=== PATIENT | female | born 1945 | race Hispanic/Latino ===

== ENCOUNTER 2017-12-08 16:20 | Emergency (ER) | payer OTHER ==
[~2017-12-08] VITALS: Ht 154.9 cm; Wt 81.6 kg
[~2017-12-08 16:20] MED LIST: ATORVASTATIN; EFFEXOR XR150 MG PO; GLYBURIDE PO; LOMOTIL TABLET1 EACH; METOPROLOL PO; NORVASC5 MG PO; VENTOLIN HFA18 GM IH; [UNRECOGNIZED DRUG - CODE] INH
[2017-12-08] MEDS ORDERED: IBUPROFEN 600 MG TAB PO ONE (17:15)
--- NOTE | 2017-12-08 18:54 | Diagnostic Imaging Report ---
LEFT ELBOW X-RAY - 3 VIEWS HISTORY: \S\fall, pain \[id number] \S\1700 COMPARISON: None available. FINDINGS: Bones: No acute displaced fracture. Osseous alignment is within normal limits. Joints: The joint spaces are well-maintained. Soft tissues: The soft tissues appear unremarkable. IMPRESSION: No acute radiographic abnormality. Signed by: Dr. Celsa Daniels M.D. on 12/08/2017 6:51 PM
--- NOTE | 2017-12-08 18:55 | Diagnostic Imaging Report ---
LEFT WRIST X-RAY - 4 VIEWS HISTORY: \S\fall, pain \[id number] \S\1700 COMPARISON: None available. FINDINGS: Bones: No acute displaced fracture. Osseous alignment is within normal limits. Joints: The joint spaces are well-maintained. Soft tissues: The soft tissues appear unremarkable. IMPRESSION: No acute radiographic abnormality. Signed by: Dr. Celsa Daniels M.D. on 12/08/2017 6:52 PM
[2017-12-08 19:18] VITALS: BP 166/86
== END 2017-12-08 19:28 | disposition home or self-care (01) ==
LOC: ER 16:20
DX: S50.02XA Contusion of left elbow, initial encounter (principal); S60.212A Contusion of left wrist, initial encounter; W01.0XXA Fall on same level from slipping, tripping and stumbling without subsequent striking against object, initial encounter; Y92.008 Other place in unspecified non-institutional (private) residence as the place of occurrence of the external cause; F32.9 Major depressive disorder, single episode, unspecified
CPT/HCPCS: 99283

== ENCOUNTER 2020-02-13 14:24 | Inpatient (IN) | payer MEDICARE, OTHER ==
[~2020-02-13] VITALS: Ht 154.9 cm; Wt 50.8 kg
--- NOTE | 2020-02-13 14:45 | NUR ---
EDICAL ADVICE PATIENTS DAUGHTER AT THE WINDOW INSISTING THAT SHE BE ALLOWED BACK WITH PATIENT, STATING "I HAVE ALREADY HAD COVID SO I CAN'T CATCH IT AGAIN". EXPLAINED TO THE DAUGHTER THAT HOSPITAL POLICY FOR PATIENTS PRESENTING WITH COVID COMPLAINTS IS THAT THERE ARE NO VISITORS. PATIENTS DAUGHTER STATES THAT SHE IS GOING TO TAKE THE PATIENT TO ANOTHER HOSPITAL WHERE SHE WILL BE ABLE TO GO BACK WITH THE PATIENT. PATIENTS DAUGHTER STATES THAT SHE IS THE POWER OF EDGE BASTER, AND THAT THE PATIENT HAS DEMENTIA SO SHE MUST BE ALLOWED BACK WITH THE PATIENT. PATIENT ALERT AND ORIENTED AT THIS TIME, APPEARS IN NO DISTRESS, O2 SATS 100% ON ROOM AIR. PATIENT STATES THAT HER DAUGHTER IS ALWAYS LIKE THAT, AND "YOU ARE NOT GOING TO WIN, SHE IS USED TO BOSSING PEOPLE AROUND AND GETTING HER OWN WAY". PATIENT STATED THAT SHE WOULD STAY OR SIGN OUT AGAINST MEDICAL ADVICE ACCORDING TO WHAT HER DAUGHTER WANTED. DR MOLINA SPOKE WITH PATIENT AND DAUGHTER. DAUGHTER RELUCTANTLY AGREED TO ALLOW PATIENT TO STAY, BUT STATED THAT "I WILL BE CALLING OR COMING UP THERE EVERY 30 MINUTES FOR UPDATES. I NEED TO MAKE SURE THAT YOU ARE TAKING CARE OF HER". DR MOLINA UPDATED PATIENT AND FAMILY MEMBER ON PLAN OF CARE AND TIME EXPECTANCY FOR RESULTS.
[2020-02-13] MEDS ORDERED: SODIUM CHLORIDE 0.9% 1000ML 1,000 ML IV STA (14:50)
[2020-02-13] MEDS ORDERED: METOPROLOL SUCC50 MG PO (14:58)
[2020-02-13] MEDS ORDERED: ATORVASTATIN CA20 MG PO (14:58)
[2020-02-13] MEDS ORDERED: AZITHROMYCIN250 MG PO (14:58)
[2020-02-13] MEDS ORDERED: DETROL LA4 MG PO (14:58)
[2020-02-13] MEDS ORDERED: DIPHENOXYLATE-1 EACH PO (14:58)
[2020-02-13] MEDS ORDERED: VENLAFAXINE HC150 MG PO (14:58)
[2020-02-13] MEDS ORDERED: TESSALON PERLE100 MG PO (14:58)
[2020-02-13] MEDS ORDERED: DEXAMETHASONE4 MG PO (14:58)
[2020-02-13] MEDS ORDERED: NAMENDA5 MG PO (14:58)
--- OUTSIDE RECORDS SUMMARY | 2020-02-13 14:58 | XMS REPORT | Continuity of Care Document ---
Author Author [facility] Organization [facility] Address [address] [place] [address] Phone Unavailable Care Team Providers Care Auto Transmission Technician Name Role Phone Meggan CAVANAUGH MD PCP Josiah WEBB Attphymeggna Unavailable Payers Payer Name Policy Type Policy Number Effective Date Expiration Date Meggan Fonseca [id number] 2017 00:00:00 [facility] Problems Condition Name Condition Details Condition Category Status Onset Date Resolution Date Last Treatment Date Treating Clinician Comments Source Bronchitis Bronchitis Problem Active 2014-03-04 00:00:00 [facility] Fever Fever Problem Active 2014-03-04 00:00:00 [facility] Hypoxia Hypoxia Problem Active 2014-03-04 00:00:00 [facility] Reactive airway disease Reactive airway disease Problem Active 2014-03-04 00:00:00 [facility] Allergies, Adverse Reactions, Alerts Allergy Name Allergy Type Status Severity Reaction(s) Onset Date Inacti ve Date Treating Clinician Comments Source Morphine Allergy to Substance Active 2017-12-08 00:00:00 [facility] Medications Ordered Medication Name Filled Medication Name Start Date Stop Da te Current Medication? Ordering Clinician Indication Dosage Frequency Signature (SIG) Comments Components Source Albuterol Sulfate (Ventolin Hfa) 18 Gm Hfa.aer.ad Albu terol Sulfate (Ventolin Hfa) 18 Gm Hfa.aer.ad 2014-03-07 00:00:00 Yes Anjali Dinh 80 Every 4 Hours [facility] Amlodipine Besylate (Norvasc) 5 Mg Tab Amlodipine Besylate ( Norvasc) 5 Mg Tab 2014-03-07 00:00:00 Yes Anjali Dinh 5 Daily [facility] [id number] 1 Ea Inha [id number] 1 Ea Inha 2014-03-07 00:00:00 2014-04-06 00:0 0:00 No Anjali Dinh 0 Rt Bid [facility] Atorvastatin Atorvastatin Yes Daily [facility] Glyburide Glyburide Yes 2 Twice A Day [facility] Metoprolol Metoprolol Yes 50 Bedtime [facility] Venlafaxine Hcl (Effexor Xr) 150 Mg Cap.er.24h Venlafa xine Hcl (Effexor Xr) 150 Mg Cap.er.24h Yes 150 Daily [facility] Procedures This patient has no known procedures. Encounters Start Date/Time End Date/Time Encounter Type Admission Type [facility] Care Department Encounter ID Source 2017-12-08 16:20:00 2017-12-08 19:28:00 Departed Emergency Room 1 FABY WEBB [facility] [id number] [facility] Results Test Description Test Time Test Comments Results Result Comments Source WRIST COMPLETE LEFT 2017-12-08 18:51:00 [place] [address] Patient Name: LEE MICHAEL MR #: [id number] : 1945 Age/Sex: 72/F Req #: [id number] Adm Physician: Ordered by: FABY WEBB MD Report #: [id number] Location: ER Room/Bed: Procedure: [id number] DX/WRIST COMPLETE LEFT Exam Date: 09/02/18 Exam Time: 1700 REPORT STATUS: Signed LEFT WRIST X-RAY - 4 VIEWS HISTORY: COMPARISON: None available. FINDINGS: Bones: No acute displaced fracture. Osseous alignment is within normal limits. Joints: The joint spaces are well-maintained. Soft tissues: The soft tissues appear unremarkable. IMPRESSION: No acute radiographic abnormality. Signed by: Dr. Nickolas Canseco M.D. on 12/08/2017 6:52 PM Dictated By: NICKOLAS CANSECO MD 51 Transcribed By: KASSIDY on 12/08/171851 COPY TO: FABY WEBB MD ELBOW LEFT COMPLETE 2017-12-08 18:50:00 [place] [address] Patient Name: LEE MICHAEL MR #: [id number] : 1945 Age/Sex: 72/F Req #: [id number] Adm Physician: Ordered by: FABY WEBB MD Report #: [id number] Location: ER Room/Bed: Procedure: [id number] DX/ELBOW LEFT COMPLETE Exam Date: 12/08/17 Exam Time: 1700 REPORT STATUS: Signed LEFT ELBOW X-RAY - 3 VIEWS HISTORY: COMPARISON: None available. FINDINGS: Bones: No acute displaced fracture. Osseous alignment is within normal limits. Joints: The joint spaces are well-maintained. Soft tissues: The soft tissues appear unremarkable. IMPRESSION: No acute radiographic abnormality. Signed by: Dr. Nickolas Canseco M.D. on 12/08/2017 6:51 PM Dictated By: NICKOLAS CANSECO MD 50 Transcribed By: KASSIDY on 12/08/171850 COPY TO: FABY WEBB MD
[2020-02-13 15:23] LABS: HEMATOCRIT 39.3 % (34.2-44.1); HEMOGLOBIN 12.9 g/dL (12.0-16.0); LYMPHOCYTES # (AUTO) 0.6 (1.0-3.2); LYMPHOCYTES % 9.8 % (18.0-39.1); MEAN CORPUSCULAR HEMOGLOBIN 27.5 pg (28-32); MEAN CORPUSCULAR HGB CONC 32.8 g/dL (31-35); MEAN CORPUSCULAR VOLUME 83.8 fL (81-99); MONOCYTES # (AUTO) 0.4 (0.2-0.8); MONOCYTES % 5.7 % (4.4-11.3); NEUTROPHILS # (AUTO) 5.2 (2.1-6.9); NEUTROPHILS % 84.2 % (38.7-80.0); PLATELET COUNT 197 x10e3/uL (140-360); RED BLOOD COUNT 4.69 x10e6/uL (3.6-5.1); RED CELL DISTRIBUTION WIDTH 14.3 % (11.7-14.4)
[2020-02-13] MEDS: AZITHROMYCIN 500MG/NS 250 ML 250 ML IV SCH (15:50)
[2020-02-13] MEDS: ASCORBIC ACID 500 MG TAB PO SCH (15:50)
--- NOTE | 2020-02-13 16:00 | Diagnostic Imaging Report ---
EXAMINATION: CHEST SINGLE (PORTABLE) COMPARISON: None INDICATION: ^Y ^COUGH, SOB ^20200213 ^1537 DISCUSSION: Frontal view of the chest obtained at 1537 hours. HEART AND MEDIASTINUM: The heart is top normal in size. The aorta is tortuous with calcifications of the aortic arch LINES: None. LUNGS: Multifocal groundglass airspace opacities throughout the lungs. The lung volumes are diminished. Mild interstitial edema. PLEURA: No large effusions. No pneumothorax. BONES AND SOFT TISSUES: No focal osseous lesion. The soft tissues are normal. IMPRESSION: Diffuse interstitial and alveolar airspace opacities suggestive of edema or pneumonia in the appropriate clinical setting. Signed by: Dr. Carlitos Thorpe MD on 02/13/2020 3:57 PM
--- OUTSIDE RECORDS SUMMARY | 2020-02-13 16:24 | XMS REPORT | Continuity of Care Document ---
Author Author [facility] Organization [facility] Address [address] [place] [address] Phone Unavailable Care Team Providers Care Airborne Operations Name Role Phone Mary CAVANAUGH MD PCP Erika MOLINA Attphys Unavailable MANEEVESEJosiah FABY Attphys Unavailable Payers Payer Name Policy Type Policy Number Effective Date Expiration Date Mary Fonseca [id number] 2017 00:00:00 [facility] Problems Condition Name Condition Details Condition Category Status Onset Date Resolution Date Last Treatment Date Treating Clinician Comments Source Bronchitis Bronchitis Problem Active 2014-03-04 00:00:00 [facility] Fever Fever Problem Active 2014-03-04 00:00:00 [facility] Hypoxia Hypoxia Problem Active 2014-03-04 00:00:00 [facility] Reactive airway disease Reactive airway disease Problem Active 2014-03-04 00:00:00 [facility] Allergies, Adverse Reactions, Alerts Allergy Name Allergy Type Status Severity Reaction(s) Onset Date Inacti ve Date Treating Clinician Comments Source Morphine Allergy to Substance Active 2017-12-08 00:00:00 [facility] Medications Ordered Medication Name Filled Medication Name Start Date Stop Da te Current Medication? Ordering Clinician Indication Dosage Frequency Signature (SIG) Comments Components Source Albuterol Sulfate (Ventolin Hfa) 18 Gm Hfa.aer.ad Albu terol Sulfate (Ventolin Hfa) 18 Gm Hfa.aer.ad 2014-03-07 00:00:00 Yes Anjali Dinh 80 Every 4 Hours [facility] Amlodipine Besylate (Norvasc) 5 Mg Tab Amlodipine Besylate ( Norvasc) 5 Mg Tab 2014-03-07 00:00:00 Yes Anjali Dinh 5 Daily [facility] [id number] 1 Ea Inha [id number] 1 Ea Inha 2014-03-07 00:00:00 2014-04-06 00:0 0:00 No Anjali Dinh 0 Rt Bid [facility] Atorvastatin Atorvastatin Yes Daily [facility] Glyburide Glyburide Yes 2 Twice A Day [facility] Metoprolol Metoprolol Yes 50 Bedtime [facility] Venlafaxine Hcl (Effexor Xr) 150 Mg Cap.er.24h Venlafa xine Hcl (Effexor Xr) 150 Mg Cap.er.24h Yes 150 Daily [facility] Procedures This patient has no known procedures. Encounters Start Date/Time End Date/Time [email or web address] Department Encounter ID Source 2017-12-08 16:20:00 2017-12-08 19:28:00 Departed Emergency Room 1 FABY WEBB [facility] [id number] [facility] Results Test Description Test Time Test Comments Results Result Comments Source CHEST SINGLE (PORTABLE) 2020-02-13 15:56:00 [facility] 1945 Sex: [place] [address] Patient Name: LEE MICHAEL MR #: [id number] : 1945 Age/Sex: 74/F Req #: [id number] Adm Physician: Ordered by: SHLOMO MOLINA MD Report #: [id number] Location: ER Room/Bed: Procedure: [id number] DX/CHEST SINGLE (PORTABLE) Exam Date: 02/13/20 Exam Time: 1537 REPORT STATUS: Signed EXAMINATION: CHEST SINGLE (PORTABLE) COMPARISON: None INDICATION: Y COUGH, SOB [id number] DISCUSSION: Frontal view of the chest obtained at 1537 hours. HEART AND MEDIASTINUM: The heart is top normal in size. The aorta is tortuous with calcifications of the aortic arch LINES: None. LUNGS: Multifocal groundglass airspace opacities throughout the lungs. The lung volumes are diminished. Mild interstitial edema. PLEURA: No large effusions. No pneumothorax. BONES AND SOFT TISSUES: No focal osseous lesion. The soft tissues are normal. IMPRESSION: Diffuse interstitial and alveolar airspace opacities suggestive of edema or pneumonia in the appropriate clinical setting. Signed by: Dr. Marah Thorpe MD on 02/13/2020 3:57 PM Dictated By: MARAH THORPE MD 56 Transcribed By: KASSIDY on 02/13/201556 COPY TO: SHLOMO MOLINA MD WRIST COMPLETE LEFT 2017-12-08 18:51:00 [place] [address] Patient Name: LEE MICHAEL MR #: [id number] : 1945 Age/Sex: 72/F Req #: [id number] Adm Physician: Ordered by: FABY WEBB MD Report #: [id number] Location: ER Room/Bed: Procedure: DX/WRIST COMPLETE LEFT Exam Date: 12/08/17 Exam Time: 1700 REPORT [...] WEBB MD ELBOW LEFT COMPLETE 2017-12-08 18:50:00 [place] [address] Patient Name: LEE MICHAEL MR #: [id number] : 1945 Age/Sex: 72/F Req #: [id number] Adm Physician: Ordered by: FABY WEBB MD Report #: [id number] Location: ER Room/Bed: Procedure: DX/ELBOW LEFT COMPLETE Exam Date: 12/08/17 Exam [...]
--- NOTE | 2020-02-13 16:27 | NUR ---
daughter again at ER asking to talk to RN and MD taking care of patient. Patients resting in room. Her cell phone is charging at bedside.
[2020-02-13 16:39] LABS: INR 0.9; PARTIAL THROMBOPLASTIN TIME 32.6 seconds (23.8-35.5); PROTHROMBIN TIME 12.6 seconds (11.9-14.5)
[2020-02-13] MEDS ORDERED: ENOXAPARIN INJ 80 MG/0.8 ML SYR SC SCH (17:00)
[2020-02-13] MEDS ORDERED: DEXAMETHASONE SOD PHOS 10 MG/1 ML VIAL IV ONE (17:00)
[2020-02-13] MEDS ORDERED: ASCORBIC ACID 500 MG TAB PO SCH (17:00)
[2020-02-13 17:01] LABS: ALBUMIN 3.1 g/dL (3.5-5.0); ALBUMIN/GLOBULIN RATIO 0.6 (0.8-2.0); ANION GAP 18.5 mmol/L (8-16); CALCIUM 9.3 mg/dL (8.4-10.2); CREATININE, SERUM 1.44 mg/dL (0.57-1.11); POTASSIUM 5.5 mmol/L (3.5-5.1)
--- NOTE | 2020-02-13 17:05 | Emergency Department Note ---
History of Present Illnes History of Present Illness Chief Complaint: COVID PUI History of Present Illness This is a 74 year old female presents to ER with feeling ill for 2 weeks. cough, fever and fatigue. Everyone at home is Covid +. O2 sat at home was high 80's per daughter Historian: Patient Arrival Mode: Car Career Guidance Counselor Required: No Onset (how long ago): week(s) (2) Radiation: Reports non-radiation Severity: moderate Onset quality: gradual Timing of current episode: constant Progression: waxing and waning Chronicity: new Context: Denies recent illness Relieving factors: none Exacerbating factors: none Associated symptoms: Reports cough, Reports fever/chills, Reports malaise, Reports shortness of breath Past Medical/Family History Physician Review I have reviewed the patient's past medical and family history. Any updates have been documented here. Past Medical History Recent Fever: No Clinical Suspicion of Infectio: No New/Unexplained Change in Ment: No Past Medical History: Hypertension, Diabetes, Anxiety, Depression, Hyperlipedemia Other Medical History: DEPRESSION Past Surgical History: Cholecysctectomy, Appendectomy, Hysterectomy, T&A Other Surgery: BLADDER SUSPENSION KNEE Social History Smoking Cessation: Never Smoker Alcohol Use: None Any Illegal Drug Use: No TB Exposure/Symptoms: No Physically hurt or threatened: No Family History Family history of heart diseas: No Other Last Tetanus: UNK Any Pre-Existing Lines (PICC,: No Review of Systems Review of Systems Constitutional: Reports as per HPI, Reports chills, Reports fever, Reports malaise EENTM: Reports no symptoms Cardiovascular: Reports no symptoms Respiratory: Reports as per HPI, Reports cough, Reports pain with cough, Reports dyspnea, Reports dyspnea on exertion Gastrointestinal: Reports no symptoms Genitourinary: Reports no symptoms Musculoskeletal: Reports no symptoms Integumentary: Reports no symptoms Neurological: Reports no symptoms Psychological: Reports no symptoms Endocrine: Reports no symptoms Hematological/Lymphatic: Reports no symptoms Review of other systems: All other systems negative Physical Exam Related Data Allergies: Coded Allergies: morphine (Verified Allergy, Unknown, 12/08/17) Triage Vital Signs Vital Signs Date Time Temp Pulse Resp B/P (MAP) Pulse Ox O2 Delivery O2 Flow Rate FiO2 02/13/20 15:22 98.4 71 20 139/79 95 Room Air Vital signs reviewed: Yes Physical Exam CONSTITUTIONAL Constitutional: Present well-developed, Present well-nourished HENT HENT: Present normocephalic, Present atraumatic, Present oropharynx clear/moist, Present nose normal HENT L/R: Present left ext ear normal, Present right ext ear normal EYES Eyes: Reports PERRL, Reports conjunctivae normal NECK Neck: Present ROM normal PULMONARY Pulmonary: Present effort normal, Present rhonchi (bilateral) CARDIOVASCULAR Cardiovascular: Present regular rhythm, Present heart sounds normal, Present capillary refill normal, Present normal rate GASTROINTESTINAL Abdominal: Present soft, Present nontender, Present bowel sounds normal GENITOURINARY Genitourinary: Present exam deferred SKIN Skin: Present warm, Present dry MUSCULOSKELETAL Musculoskeletal: Present ROM normal NEUROLOGICAL Neurological: Present alert, Present oriented x 3, Present no gross motor or sensory deficits PSYCHOLOGICAL Psychological: Present mood/affect normal, Present judgement normal Results Laboratory Result Diagram: 02/13/20 1501 Laboratory Laboratory Tests Test 02/13/20 15:01 White Blood Count 6.15 x10e3/uL (4.8-10.8) Red Blood Count 4.69 x10e6/uL (3.6-5.1) Hemoglobin 12.9 g/dL (12.0-16.0) Hematocrit 39.3 % (34.2-44.1) Mean Corpuscular Volume 83.8 fL (81-99) Mean Corpuscular Hemoglobin 27.5 pg (28-32) Mean Corpuscular Hemoglobin Concent 32.8 g/dL (31-35) Red Cell Distribution Width 14.3 % (11.7-14.4) Platelet Count 197 x10e3/uL (140-360) Neutrophils (%) (Auto) 84.2 % (38.7-80.0) Lymphocytes (%) (Auto) 9.8 % (18.0-39.1) Monocytes (%) (Auto) 5.7 % (4.4-11.3) Eosinophils (%) (Auto) 0.0 % (0.0-6.0) Basophils (%) (Auto) 0.0 % (0.0-1.0) Neutrophils # (Auto) 5.2 (2.1-6.9) Lymphocytes # (Auto) 0.6 (1.0-3.2) Monocytes # (Auto) 0.4 (0.2-0.8) Eosinophils # (Auto) 0.0 (0.0-0.4) Basophils # (Auto) 0.0 (0.0-0.1) Absolute Immature Granulocyte (auto 0.02 x10e3/uL (0-0.1) Prothrombin Time 12.6 seconds (11.9-14.5) Prothromb Time International Ratio 0.90 Activated Partial Thromboplast Time 32.6 seconds (23.8-35.5) B-Type Natriuretic Peptide 58.8 pg/mL (0-100) Lab results reviewed: Yes Imaging Imaging results reviewed: Yes Procedures 12 Lead ECG Interpretation ECG Interpretation : ECG: ECG 1 Career Guidance Counselor: Interpreted by ED physician Date: Feb 13, 2020 Time: 14:33 Rhythm: sinus rhythm Rate: normal QRS axis: normal (72) Conduction: right bundle branch block ST segments normal: Yes T wave inversion: III, V3 Clinical Impression: abnormal ECG Critical Care Time Total Critical Care Time (min): 30 Critcal care time spent by me: discussion w consultants, discussion w primary provider, obtaining hx from patient/surrogate, order/perform tx or inter ventions, order/review laboratory studies, order/review radiographic studies, pulse oximetry Assessment & Plan Medical Decision Making MDM likely covid19 - cbc, chem, ecg, cardiacs, cxr, covid swab, rocephin/azithro, decadron, admit, consult manolo/jonathon Reassessment Reassessment Admit to [facility] ([facility]), i spoke with dr perdomo Assessment & Plan Final Impression: (1) Pneumonia due to COVID-19 virus (2) Hypoxia Last Vital Signs Date Time Temp Pulse Resp B/P (MAP) Pulse Ox O2 Delivery O2 Flow Rate FiO2 02/13/20 16:47 98.6 67 18 116/70 96 02/13/20 15:24 Venturi Mask Home Meds Reported Medications Diphenoxylate Hcl/Atropine (DIPHENOXYLATE-ATROPINE TABLET) 1 Each Tablet, 1 TAB PO BID 02/13/20 Azithromycin (Z-KARLA) 250 Mg Tablet, 250 MG PO UD, #1 UDPKT Z-Pack 02/13/20 Benzonatate (TESSALON PERLE) 100 Mg Capsule, 200 MG PO TID, CAP 02/13/20 Dexamethasone (DEXAMETHASONE) 4 Mg Tablet, 6 MG PO DAILY, TAB 02/13/20 Tolterodine Tartrate (DETROL LA) 4 Mg Cap.er.24h, 2 MG PO BID, #30 CAP 02/13/20 Venlafaxine Hcl (VENLAFAXINE HCL ER) 150 Mg Cap.er.24h, 150 MG PO BID 02/13/20 Memantine Hcl (NAMENDA) 5 Mg Tablet, 5 MG PO BID, TAB 02/13/20 Metoprolol Succinate (METOPROLOL SUCCINATE) 50 Mg Tab.er.24h, 50 MG PO DAILY, MG 02/13/20 Atorvastatin Calcium (ATORVASTATIN CALCIUM) 20 Mg Tablet, 40 MG PO HS, #30 TAB 02/13/20 Discontinued Reported Medications [Glyburide] No Conflict Check, 2 MG PO BID 06/03/14 [Metoprolol] No Conflict Check, 50 MG PO HS 10/13/12 [Atorvastatin] No Conflict Check, DAILY 10/13/12 Venlafaxine Hcl (EFFEXOR XR) 150 Mg Cap.er.24h, 150 MG PO DAILY 10/13/12 Discontinued Scripts Albuterol Sulfate (VENTOLIN HFA) 18 Gm Hfa.aer.ad, 80 MCG IH Q4HR, #1 Prov:TIFFANIE CHINO 03/07/14 Amlodipine Besylate (NORVASC) 5 Mg Tab, 5 MG PO DAILY, #30 TAB Prov:TIFFANIE CHINO 03/07/14 [Budesonide] 1 EA INHA No Conflict Check, 0 EA INH RBID for 30 Days Prov:TIFFANIE CHINO 03/07/14 Medications in the ED Sodium Chloride 1,000 ml @ 0 mls/hr Q0M STAT IV ; Start 02/13/20 at 14:50; Stop 02/13/20 at 14:53; Status DC Ceftriaxone Sodium 100 ml @ 100 mls/hr Q24H IV ; Start 02/13/20 at 15:00; Stop 02/20/20 at 14:59 Azithromycin 250 ml @ 100 mls/hr Q24H IV ; Start 02/13/20 at 15:00; Stop 02/18/20 at 14:59 SHLOMO MOLINA MD Feb 13, 2020 17:05
[2020-02-13 17:08] LABS: CREATINE KINASE MB 1.2 ng/mL (0-5.0)
[2020-02-13] MEDS ORDERED: ONDANSETRON HCL INJ 2MG/ML 2ML 2 MG/ML VIAL IV PRN (17:45)
[2020-02-13] MEDS ORDERED: ZOLPIDEM TARTRATE 5 MG TAB PO PRN (17:45)
[2020-02-13 18:22] LABS: CLARITY,URINE HAZY (CLEAR); COLOR,URINE YELLOW (YELLOW)
[2020-02-13 18:23] LABS: BILIRUBIN,URINE NEGATIVE (NEGATIVE); KETONES,URINE NEGATIVE (NEGATIVE); LEUKOCYTE ESTERASE ,URINE NEGATIVE (NEGATIVE); NITRITE,URINE NEGATIVE (NEGATIVE); PROTEIN,URINE DIPSTICK 1+ (NEGATIVE); URINE UROBILINOGEN 0.2 mg/dL (0.2 - 1)
[2020-02-13 18:28] LABS: AMORPHOUS SEDIMENT,URINE FEW (FEW); BACTERIA,URINE FEW /HPF; EPITHELIAL CELLS,URINE MODERATE /LPF
[2020-02-13 18:29] LABS: MUCUS,URINE FEW (RARE)
[2020-02-13 18:55] VITALS: BP 146/61
--- NOTE | 2020-02-13 19:15 | NUR ---
Received shift report from day shift nurse. Pt is alert and oriented sitting semi-fowlers in bed. Pt denies pain or discomfort. No distress noted. Oriented pt to room and instructed on use of call light. Instructed pt to call for assistance when needed. Pt denies questions or concerns at this time. Call light within reach.
--- NOTE | 2020-02-13 19:28 | Consultation ---
DATE OF CONSULTATION: HISTORY OF PRESENT ILLNESS: Pneumonia in this patient who is a 74-year-old who has history of obesity, history of hypertension, and diabetes. She has been sick for a couple of weeks. Her family did have COVID. The patient comes in because she is short of breath and for the last 2 weeks she has been having some sore throat and cough and now she is having shortness of breath. The patient was in the emergency room. She is to being evaluated and going to be admitted. I am asked to see her. Her chest x-ray showed diffuse interstitial alveolar airspace opacities suggestive of edema and/or pneumonia. PAST MEDICAL HISTORY: Diabetes mellitus and hypertension. PAST SURGICAL HISTORY: Denies. ALLERGIES: NKA. SOCIAL HISTORY: There is no smoking, drug abuse, or alcohol abuse. FAMILY HISTORY: Otherwise unremarkable. According to the family and the patient, she has been sick for a couple of weeks. REVIEW OF SYSTEMS: Beside what is noted above, denies any. PHYSICAL EXAMINATION: GENERAL: She is currently alert, oriented, does not seem to be in acute distress. VITAL SIGNS: Stable, currently afebrile. HEENT: She is not icteric. NECK: Supple. CHEST: Crackles bilateral. HEART: S1, S2. ABDOMEN: Soft. Bowel sounds present. EXTREMITIES: No edema. SKIN: No rash. VITAL SIGNS: Her temperature is 98.4, heart rate is 74, blood pressure 139/79. The patient is currently on 2 L. IMPRESSION: Atypical pneumonia, concerned about COVID-19, concerned about community-acquired pneumonia. We will put her on Rocephin and azithromycin. We will observe her oxygen as needed. If there is no need for oxygen, can discontinue dexamethasone. Continue all her home medications. We will reassess in the morning. MD MILAGRO Sunshine/AL /[id number]
--- NOTE | 2020-02-13 19:30 | NUR ---
Pt's daughter, Samanta, called requesting an update. Informed Samanta of all medication orders-[place] requested that PRN Meet be DC'd stating that pt is forgetful enough already and does not do well with medications that cause drowsiness. Samanta reviewed pt's home med list with me at this time-Will call Dr. Smith for orders. Informed daughter Samanta of all other orders including tele monitoring, O2 sat monitoring, labs to be drawn, etc. Daughter Samanta states that she is the MPOA for the pt and wants to be notified every time a doctor sees the pt-Wrote a noted in captial letters on pts white board in room and will pass on info in report. Dtr Samanta can be reached at [phone]-She states that you can call at any time day or night. Spoke with pt who states that she is ok with us speaking with dtr Samanta and providing updates. Pt states that she agrees with dtr [place] that she can be very forgetful at times.
--- NOTE | 2020-02-13 19:38 | Consultation ---
DATE OF CONSULTATION: CHIEF COMPLAINT: Cough and dyspnea. HISTORY OF PRESENT ILLNESS: The patient is a 74-year-old woman with a history of possible COPD. She uses inhalers at home. She reports being sick for 10 to 14 days. She has cough. She has noted some dyspnea, but no fevers. She was exposed to her son who had COVID. PAST SURGICAL HISTORY: 1. Hysterectomy. 2. Appendectomy. 3. Cholecystectomy. 4. Bladder suspension. PAST MEDICAL HISTORY: 1. History of COPD. 2. No prior cardiac history. SOCIAL HISTORY: The patient has never been a smoker. She is not a drinker. ALLERGIES: THE PATIENT IS ALLERGIC TO MORPHINE. REVIEW OF SYSTEMS: The patient has no fever. No headache. She is not having any neck pain. She has no chest pain. CARDIAC: Reveals regular rate and rhythm with normal S1 and S2. LUNGS: Auscultation of lungs shows clear breath sounds bilaterally. There is no wheezing. ABDOMEN: Soft and nontender. There is no rebound or guarding. EXTREMITIES: Shows 2 to 3+ leg edema. PHYSICAL EXAMINATION: VITAL SIGNS: The patient is afebrile. The blood pressure is 116/70, saturation is 96%. The pulse is 67. HEENT: Shows no facial swelling or erythema. LYMPHATIC: Shows no submandibular, cervical, or supraclavicular adenopathy. CARDIAC: Reveals regular rate and rhythm with normal S1 and S2. LUNGS: Auscultation of lungs shows decreased breath sounds at the bases. There is no wheezing. ABDOMEN: Soft and nontender. There is no rebound or guarding. EXTREMITIES: Shows no leg edema or calf tenderness. There is no cyanosis or clubbing. SKIN: Shows no rashes. NEUROLOGICAL: Shows no focal abnormalities. LABORATORY DATA: White blood cell count is 6.15, hemoglobin is 12.9 and the platelet count is 197. BUN to creatinine ratio is 34 to 1.44. Potassium is 5.5, carbon dioxide is 19 and sodium is 134. Albumin is 3.1. Serologies positive for COVID-19. RADIOGRAPHIC DATA: Chest x-ray shows bilateral infiltrates suggestive of atypical pneumonia. IMPRESSION: 1. Atypical pneumonia and COVID-19. 2. History of chronic obstructive pulmonary disease. 3. Chronic renal insufficiency, stage 3. 4. Hyponatremia. PLAN: 1. Judicious use of IV fluids. 2. Dexamethasone. 3. Rocephin and Zithromax. 4. Lovenox for DVT prophylaxis. 5. Continue to monitor renal function. 6. Echocardiogram. MD ADRIANA Henry/MODL /[id number]
[2020-02-13 20:11] VITALS: BP 146/61
--- NOTE | 2020-02-13 20:15 | NUR ---
Johnna with telepharmacy called unit to clarify orders for Dexamethasone and Lovenox. Will attempt to contact ordering physician, Dr. Moraes, to clarify orders.
--- NOTE | 2020-02-13 20:25 | NUR ---
Attempt to contact Dr. Smith unsuccessful-Left voicemail to return call. Called to discuss home medications for orders and to clarify med orders in EMAR.
--- NOTE | 2020-02-13 20:40 | NUR ---
Attempt to contact Dr. Moraes via telephone unsuccessful. Attempted to contact Dr. Moraes to clarify orders for Dexamethasone and Lovenox. Left a voicemail for Dr. Moraes to return phone call.
--- NOTE | 2020-02-13 21:02 | NUR ---
Update given to pt. Informed pt that I called and left a voicemail for Dr. Smith for orders regarding home medications. Pt verbalized understanding and denies questions or concerns at this time.
[2020-02-13] MEDS: SODIUM CHLORIDE 0.9% 1000ML 1,000 ML IV SCH (21:10)
[2020-02-13] MEDS ORDERED: ATORVASTATIN CA40 MG PO (21:36)
[2020-02-13 22:33] LABS: CREATINE KINASE MB 1.2 ng/mL (0-5.0)
[2020-02-13] MEDS ORDERED: LANTUS 3ML100 UNITS/ SC (22:37)
[2020-02-13] MEDS ORDERED: ENOXAPARIN 30 MG/0.3 ML SYR SC ONE (23:15)
--- NOTE | 2020-02-13 23:30 | NUR ---
Dr. Smith and Dr. Moraes have not yet returned calls. Johnna from telepharmacy called again and stated she is going to put a one time 20mg subq dose of the Lovenox on the EMAR to administer to the pt until we can clarify that the MDs do not want to do a 30mg dose.
[2020-02-14] VITALS (10 sets, daily range): BP systolic 107–154; BP diastolic 49–82
--- NOTE | 2020-02-14 03:40 | NUR ---
At pt bedside to draw labs for cardiac markers and AM CBC and CMP. Pt tolerated well. Puncture site covered with gauze and tape when bleeding stopped after applying pressure to site. Pt denies pain or discomfort and denies further questions or concerns at this time.
--- NOTE | 2020-02-14 04:24 | NUR ---
Assisted pt to bathroom. Pt is a little unsteady on her feet. There is a [facility] walker in the room-Offered to assist pt to use it. Pt stated she did not want to use the walker because her tries to make her use one at home and she does not like to use them. Pt voided x1. Assisted pt back to bed. Pt reports no cough all night but states she started coughing upon waking before I came into the room for blood draw at 0340am. Per pt it has not yet been productive. Pt also states that she wants to talk with the doctor about possibly coming off of her Effexor and trying something different. Pts call light is within reach. Instructed pt to call when assistance is needed. Pt verbalized understanding.
[2020-02-14 05:19] LABS: BASOPHILS % 0.1 % (0.0-1.0); HEMATOCRIT 38.8 % (34.2-44.1); HEMOGLOBIN 12.7 g/dL (12.0-16.0); LYMPHOCYTES % 12.9 % (18.0-39.1); MEAN CORPUSCULAR HEMOGLOBIN 27.9 pg (28-32); MEAN CORPUSCULAR HGB CONC 32.7 g/dL (31-35); MEAN CORPUSCULAR VOLUME 85.1 fL (81-99); MONOCYTES # (AUTO) 0.4 (0.2-0.8); MONOCYTES % 5.7 % (4.4-11.3); NEUTROPHILS # (AUTO) 6.1 (2.1-6.9); PLATELET COUNT 183 x10e3/uL (140-360); RED BLOOD COUNT 4.56 x10e6/uL (3.6-5.1); RED CELL DISTRIBUTION WIDTH 13.8 % (11.7-14.4)
--- NOTE | 2020-02-14 05:39 | NUR ---
Telemetry called to see what number is on the pulse ox monitor for a second time. Checked monitor again and notified telemetry that there is not one on the monitor. While speaking with the pt at this time she denies pain or discomfort. Pt states that she may want to get up to maybe "do like a sponge bath to clean up some" in a little while. Instructed pt to call when she needs assistance. Pt verbalized understanding, denies questions or concerns at this time. Call light within reach.
[2020-02-14 05:52] LABS: ALBUMIN 2.7 g/dL (3.5-5.0); ALBUMIN/GLOBULIN RATIO 0.6 (0.8-2.0); ANION GAP 17.3 mmol/L (8-16); CALCIUM 8.3 mg/dL (8.4-10.2); CREATININE, SERUM 1.04 mg/dL (0.57-1.11); POTASSIUM 4.3 mmol/L (3.5-5.1)
[2020-02-14 05:58] LABS: CREATINE KINASE MB 1.5 ng/mL (0-5.0)
--- NOTE | 2020-02-14 07:00 | NUR ---
INFECTIOUS DISEASE PROGRESS NOTE DR. TATYANA COTTON HISTORY OF PRESENT ILLNESS: Pneumonia in this patient who is a 74-year-old who has history of obesity, history of hypertension, and diabetes. She has been sick for a couple of weeks. Her family did have COVID. The patient comes in because she is short of breath and for the last 2 weeks she has been having some sore throat and cough and now she is having shortness of breath. The patient was in the emergency room. She is to being evaluated and going to be admitted. I am asked to see her. Her chest x-ray showed diffuse interstitial alveolar airspace opacities suggestive of edema and/or pneumonia. PAST MEDICAL HISTORY: Diabetes mellitus and hypertension. REVIEW OF SYSTEMS: Beside what is noted above, denies any. PHYSICAL EXAMINATION: GENERAL: She is currently alert, oriented, does not seem to be in acute distress. VITAL SIGNS: Stable, currently afebrile. HEENT: She is not icteric. normocephalic NECK: Supple. no JVD CHEST: Crackles bilateral. HEART: S1, S2. no s3, s4 ABDOMEN: Soft. Bowel sounds present. EXTREMITIES: No edema. SKIN: No rash. VITAL SIGNS: per chart IMPRESSION: Atypical pneumonia COVID-19 community-acquired pneumonia PLAN COVID protocol room air at this time repeat labs with improvement in creatinine this am Continue supportive care If the pt becomes hypoxic, start dexamethasone Fara Harrell MSN, INTEGRATION AIDE, AGACNP-BC d/w Tatyana Cotton M.D
[2020-02-14] MEDS: CEFTRIAXONE SOD 2 GM/NS 100 ML 100 ML IV SCH ×2 (07:13→14:25)
--- NOTE | 2020-02-14 07:44 | Diagnostic Imaging Report ---
EXAMINATION: CHEST SINGLE (PORTABLE) COMPARISON: Chest x-ray 02/13/2020 INDICATION: COVID ^Y ^PNEuMONIA ^[id number] ^0625 ^Y DISCUSSION: Frontal view of the chest obtained at 0627 hours. HEART AND MEDIASTINUM: The heart is normal in size. The aorta is tortuous with calcifications of the arch. LINES: None. LUNGS/PLEURA: The lungs are better aerated. Multifocal pulmonary infiltrates are redemonstrated without significant change. No pleural effusion or pneumothorax. BONES AND SOFT TISSUES: No focal osseous lesion. The soft tissues are normal. IMPRESSION: No significant change in multifocal pulmonary infiltrates consistent with COVID pneumonia. Signed by: Dr. Carlitos Thorpe MD on 02/14/2020 7:40 AM
[2020-02-14] MEDS ORDERED: CEFTRIAXONE SOD 2 GM/NS 100 ML 100 ML IV SCH (09:00)
[2020-02-14] MEDS ORDERED: ZINC SULFATE 50 MG CAP PO SCH (09:00)
[2020-02-14] MEDS ORDERED: AZITHROMYCIN 500MG/NS 250 ML 250 ML IV SCH (09:00)
[2020-02-14] MEDS: ZINC SULFATE 50 MG CAP PO SCH (09:38)
[2020-02-14] MEDS: ASCORBIC ACID 500 MG TAB PO SCH ×2 (09:38→18:00)
[2020-02-14] MEDS ORDERED: DEXTROSE 50% SYRINGE 50 ML IV PRN (11:15)
[2020-02-14] MEDS ORDERED: BENZONATATE 100 MG CAP PO PRN (11:15)
[2020-02-14] MEDS: SODIUM CHLORIDE 0.9% 1000ML 1,000 ML IV SCH (11:28)
[2020-02-14] MEDS: INSULIN LISPRO 100 UNIT/1 ML 3ML VIAL SQ SCH ×3 (11:30→19:56)
[2020-02-14] MEDS ORDERED: DEXAMETHASONE SOD PHOS 10 MG/1 ML VIAL IV SCH (12:00)
[2020-02-14] MEDS ORDERED: FUROSEMIDE INJ 10 MG/ML 4 ML VIAL IV ONE (12:00)
[2020-02-14] MEDS: BENZONATATE 100 MG CAP PO SCH ×3 (12:16→19:55)
--- NOTE | 2020-02-14 12:20 | History and Physical ---
PRIMARY CARE PHYSICIAN: Dr. Howard Rm. CONSULTANTS: 1. Dr. Erica Moraes. 2. Dr. Leopoldo Weber. CHIEF COMPLAINT: COVID-19 infection with abnormal chest x-ray, pneumonia with cough and fever. HISTORY OF PRESENT ILLNESS: A 74-year-old female with COVID-19 infection. Chest x-ray consistent with the infection. The patient has been ill for the past two weeks or so. The patient lives at home with her family. Her daughter and her grandson are infected. The patient now came in with cough and fever and fatigue. Chest x-ray showed bibasilar infiltrate. The patient is admitted. On exertion, the patient had increasing shortness of breath and cough. Her oxygen saturation on exertion is approximately 80%. The patient is otherwise stable now at rest. PAST MEDICAL HISTORY: Hypertension, diabetes, mild dementia, and COPD. PAST SURGICAL HISTORY: Hysterectomy, appendectomy, cholecystectomy, and urinary bladder suspension. SOCIAL HISTORY: The patient does not smoke or use alcohol. No regular drug use. ALLERGIES: TO MORPHINE. HOME MEDICATIONS: The patient is on Lipitor, Z-Tee, Tessalon Perles, dexamethasone, Lantus insulin, Namenda, metoprolol succinate, Detrol LA, and Effexor. PHYSICAL EXAMINATION: VITAL SIGNS: Temperature is 98, blood pressure 129/59, pulse rate 66, and respirations 18. GENERAL: The patient is not in acute distress. She is awake. HEENT: Normocephalic and atraumatic. Anicteric. NECK: Supple grossly. PULMONARY: Diminished breath sounds bilaterally with coarses and rales at the bases. CARDIOVASCULAR: S1 and S2. Regular rate and rhythm. ABDOMEN: Soft and unremarkable. EXTREMITIES: No cyanosis or edema. NEUROLOGIC: No focal deficit. LABORATORY DATA: WBC 6.1, hemoglobin 12.9, hematocrit 39.3, and platelets 194. Chemistry; sodium 139, potassium 4.3, chloride 107, bicarb 19, BUN 28, creatinine 1.0, and glucose 303. Serology; COVID-19 positive for PCR. Chest x-ray showed diffuse interstitial and alveolar airspace opacity suggestive of edema or pneumonia. IMPRESSION: 1. COVID-19 PCR positive. Viral pneumonia, possible superimposed bacterial pneumonia. 2. Symptoms of short of breath, fever, and cough. PLAN: See order. Rocephin and azithromycin. Decadron. inhaler. Tessalon Perles. Home medication resumed. Oxygen support if needed. Continue with current management. I went ahead and consulted Dr. Erica Moraes and Dr. Leopoldo Weber. We will follow up with Dr. Moraes, Infectious Disease on recommendation of antiviral treatment. MD ABA Meehan/[place] /[id number]
[2020-02-14] MEDS: AZITHROMYCIN 500MG/NS 250 ML 250 ML IV SCH (14:25)
[2020-02-14] MEDS: VENLAFAXINE HCL 75 MG CAPCR PO SCH (14:25)
[2020-02-14] MEDS: GUAIFENESIN 600 MG TAB PO SCH (14:25)
[2020-02-14] MEDS: TOLTERODINE TARTRATE 2 MG CAPCR PO SCH (14:25)
--- NOTE | 2020-02-14 17:27 | Progress Note ---
DATE: SUBJECTIVE: The patient is afebrile. PHYSICAL EXAMINATION: VITAL SIGNS: The blood pressure is 154/64, saturation is 100% and the pulse is 85. HEENT: Shows no facial swelling or erythema. LYMPHATIC: Shows no submandibular, cervical, or supraclavicular adenopathy. CARDIAC: Reveals regular rate and rhythm. Normal S1 and S2. LUNGS: Auscultation of lungs shows decreased breath sounds at the bases. ABDOMEN: Soft and nontender. There is no rebound or guarding. EXTREMITIES: Shows no leg edema or calf tenderness. There is no cyanosis or clubbing. SKIN: Shows no rashes. NEUROLOGICAL: Shows no focal abnormalities. LABORATORY DATA: The BUN to creatinine ratio is 20 to 1.04. Carbon dioxide is 19 and chloride is 107. RADIOGRAPHIC DATA: Chest x-ray shows bilateral infiltrates. IMPRESSION: 1. Viral pneumonia and coronavirus disease-19 infection. 2. Chronic obstructive pulmonary disease. 3. Chronic renal insufficiency, stage 3. PLAN: 1. Continue judicious use of IV fluids. 2. Dexamethasone. 3. Consider remdesivir. 4. Lovenox for DVT prophylaxis. 5. Rocephin and Zithromax. Leopoldo Weber MD [facility]/MOD[facility] /[id number]
[2020-02-14] MEDS ORDERED: CEPACOL SORE THROAT LOZENGES PO PRN (17:45)
[2020-02-14] MEDS: METOPROLOL SUCCINATE 50 MG TAB XL PO SCH (18:00)
[2020-02-14] MEDS: ENOXAPARIN INJ 80 MG/0.8 ML SYR SC SCH (18:00)
--- NOTE | 2020-02-14 18:50 | NUR ---
Patient and family requesting cough drops for cough. Patient adamant that cough drops are the onlything that helps with cough and patient became quite anxious. PRN tessalon perles and mucinex given per orders. Education provided to patient and patient's daughter regarding covid symptoms. Dr. Smith notified of patient's request. New order that patient may use cough drops from home prn.
--- NOTE | 2020-02-14 19:00 | NUR ---
WALKING ROUNDS PERFORMED, RECEIVED PT LAYING SEMI FOWLERS IN BED, AAOX3, RR EVEN AND NON-LABORED, ON ROOM AIR. NO S/SX OF DISTRESS NOTED. PT REPORTS SHE TOOK A HALLS COUGH DROP A LITTLE WHILE AGO AND FEELS HER COUGHING IS MUCH BETTER. DRY COUGH NOTED WITH PROLONGED TALKING. LEFT PT LAYING SEMI FOWLERS IN BED, BED IN LOW LOCKED POSITION, SIDE RAILS UPX2, CALL LIGHT AND PHONE WITHIN REACH.
[2020-02-14] MEDS: ACETAMINOPHEN 325 MG TAB PO PRN (19:55)
[2020-02-14] MEDS: ALBUTEROL SULFATE HFA 8GM INHALATION AEROSOL INH SCH ×2 (19:55→23:57)
[2020-02-14] MEDS: ATORVASTATIN 40 MG TAB PO SCH (19:55)
[2020-02-14] MEDS: INSULIN GLARGINE 100 UNITS/ML VIAL SQ SCH (19:57)
--- NOTE | 2020-02-14 21:01 | NUR ---
notified by telemetry that patients spo2 reading at 86-89%. pt noted to be sleeping, upon waking patient up the spo2 increased to 89-90%, pt asked to deep breathe, dry cough noted. after coughing and patient returned to regular respirations of 18-20,spo2 increased to 94%.
[2020-02-15] VITALS (8 sets, daily range): BP systolic 100–128; BP diastolic 40–62
[2020-02-15 04:47] LABS: BASOPHILS % 0.2 % (0.0-1.0); HEMATOCRIT 34.8 % (34.2-44.1); HEMOGLOBIN 11.3 g/dL (12.0-16.0); LYMPHOCYTES # (AUTO) 1.6 (1.0-3.2); LYMPHOCYTES % 14.2 % (18.0-39.1); MEAN CORPUSCULAR HEMOGLOBIN 27.2 pg (28-32); MEAN CORPUSCULAR HGB CONC 32.5 g/dL (31-35); MEAN CORPUSCULAR VOLUME 83.7 fL (81-99); MONOCYTES # (AUTO) 0.3 (0.2-0.8); NEUTROPHILS # (AUTO) 9.1 (2.1-6.9); PLATELET COUNT 198 x10e3/uL (140-360); RED BLOOD COUNT 4.16 x10e6/uL (3.6-5.1)
[2020-02-15 05:13] LABS: CALCIUM 8.1 mg/dL (8.4-10.2); CREATININE, SERUM 1.14 mg/dL (0.57-1.11)
[2020-02-15] MEDS: ALBUTEROL SULFATE HFA 8GM INHALATION AEROSOL INH SCH ×3 (06:53→20:36)
[2020-02-15] MEDS: GUAIFENESIN 600 MG TAB PO SCH ×2 (08:16→16:46)
[2020-02-15] MEDS: MEMANTINE 10 MG TAB PO SCH (08:16)
[2020-02-15] MEDS: VENLAFAXINE HCL 75 MG CAPCR PO SCH ×2 (08:16→16:46)
[2020-02-15] MEDS: ASCORBIC ACID 500 MG TAB PO SCH ×2 (08:16→16:46)
[2020-02-15] MEDS: BENZONATATE 100 MG CAP PO SCH ×3 (08:16→20:36)
[2020-02-15] MEDS: ZINC SULFATE 50 MG CAP PO SCH (08:16)
[2020-02-15] MEDS: METOPROLOL SUCCINATE 50 MG TAB XL PO SCH ×2 (08:16→16:46)
[2020-02-15] MEDS: TOLTERODINE TARTRATE 2 MG CAPCR PO SCH ×2 (08:16→16:46)
[2020-02-15] MEDS: ENOXAPARIN INJ 80 MG/0.8 ML SYR SC SCH ×2 (08:17→16:46)
--- NOTE | 2020-02-15 08:17 | NUR ---
patient assisted to restroom on room air. patient saturation 81% on room air after ambulating. patient positioned on belly in bed and placed on 5L nc. saturation 94%. patient educated to stay on belly as long as she can and to call for any assistance.
[2020-02-15] MEDS: INSULIN LISPRO 100 UNIT/1 ML 3ML VIAL SQ SCH ×5 (08:23→20:36)
[2020-02-15] MEDS ORDERED: REMDESIVIR 200MG/NS 100ML 200 MG in SODIUM CHLORIDE 0.9% 100 ML 100 ML IV ONE ×2 (10:15→13:00)
[2020-02-15] MEDS ORDERED: GUAIFENESIN/DEXTROMETHORPHAN LIQD 5 ML UDC NG PRN (10:15)
--- NOTE | 2020-02-15 10:56 | NUR ---
INFECTIOUS DISEASE PROGRESS NOTE DR. TATYANA COTTON HISTORY OF PRESENT ILLNESS: Pneumonia in this patient who is a 74-year-old who has history of obesity, history of hypertension, and diabetes. She has been sick for a couple of weeks. Her family did have COVID. The patient comes in because she is short of breath and for the last 2 weeks she has been having some sore throat and cough and now she is having shortness of breath. The patient was in the emergency room. She is to being evaluated and going to be admitted. I am asked to see her. Her chest x-ray showed diffuse interstitial alveolar airspace opacities suggestive of edema and/or pneumonia. PAST MEDICAL HISTORY: Diabetes mellitus and hypertension. REVIEW OF SYSTEMS: Beside what is noted above, denies any. PHYSICAL EXAMINATION: GENERAL: She is currently alert, oriented, does not seem to be in acute distress. VITAL SIGNS: Stable, currently afebrile. HEENT: She is not icteric. normocephalic NECK: Supple. no JVD CHEST: Crackles bilateral. symmetric expansion HEART: S1, S2. no s3, s4 ABDOMEN: Soft. Bowel sounds present. EXTREMITIES: No edema. moves all SKIN: No rash. no edema IMPRESSION: Atypical pneumonia COVID-19 community-acquired pneumonia PLAN COVID protocol on 6LPM, will discuss with pharmacy regarding RMSV -the pt has had symptoms for more than 10 days CTA ordered Concern for early DKA, fluids and recheck labs pending Decadron x10 days only Fara Harrell MSN, MACHINE ACCOUNTANT, AGACNP- d/w Tatyana Cotton M.D
[2020-02-15] MEDS ORDERED: INSULIN LISPRO 100 UNIT/1 ML 3ML VIAL SQ SCH (11:30)
[2020-02-15] MEDS ORDERED: SODIUM CHLORIDE 0.9% IV ONE (11:30)
[2020-02-15] MEDS ORDERED: SODIUM CHLORIDE 0.9% 50ML 50 ML ONE (11:57)
[2020-02-15] MEDS ORDERED: IOPAMIDOL 370 MG/ML 200 ML INFUS..BTL INJ ONE (11:58)
--- NOTE | 2020-02-15 12:04 | NUR ---
Addendum 02/14: After speaking with the daughter, we will begin RMSV. Explained the to daughter the risks associated with RMSV and the latest study data. The patient was on room air until last night and did not qualify for either decadron or RMSV. The daughter requested daily updates from all providers via the phone. Number is [phone]
[2020-02-15] MEDS: DEXAMETHASONE SOD PHOS INJ 4 MG/ML VIAL IV SCH (12:30)
--- NOTE | 2020-02-15 12:46 | Diagnostic Imaging Report ---
EXAM: CT Chest WITH contrast- Pulmonary Embolism Protocol INDICATION: ^rule out pe ^[id number] ^1210 COMPARISON: None TECHNIQUE: Chest was scanned utilizing a multidetector helical scanner from the lung apex through the level of the diaphragm after administration of IV contrast. Thin section reconstructions were obtained with special concentration on the pulmonary arteries. Coronal and sagittal reformations were obtained. Pulmonary embolism protocol was performed. IV CONTRAST: 100 cc of Isovue 370 RADIATION DOSE: Total DLP: 424 mGy*cm Dose modulation, iterative reconstruction, and/or weight based adjustment of the mA/kV was utilized to reduce the radiation dose to as low as reasonably achievable. COMPLICATIONS: None FINDINGS: LINES/ TUBES: None. PULMONARY ARTERIES: Main pulmonary artery measures Hounsfield units of 508. Negative for pulmonary arterial filling defect to this proximal subsegmental level. Main pulmonary artery is of normal caliber measuring up to 2.5 cm. LUNGS AND AIRWAYS: Large airways are patent. There are diffuse geographic groundglass opacities with a perihilar predominance. Diffuse mosaic attenuation is noted. Negative for dense lobar consolidation. Overall crazy paving pattern is identified. PLEURA: The pleural spaces are clear. HEART AND MEDIASTINUM: The thyroid gland is normal. Multiple enlarged mediastinal and hilar lymph nodes are noted. No suspicious axillary lymph nodes. The heart is normal in size. Negative for right ventricular enlargement or bowing of the interventricular septum. There is no pericardial effusion. Mild adverse chronic changes of the thoracic aortic arch are noted. UPPER ABDOMEN: Unremarkable. BONES: Negative for acute osseous abnormality. No suspicious destructive lesion is identified. SOFT TISSUES: Unremarkable. IMPRESSION: 1. Negative for pulmonary embolism or secondary signs of right heart strain. 2. Multifocal geographic groundglass opacities with adjacent interlobular septal thickening is nonspecific. Findings can be seen in patients with ARDS, pulmonary alveolar proteinosis or multifocal pneumonia. 3. Reactive mediastinal lymphadenopathy is noted. Signed by: Lev Bailey MD on 02/15/2020 12:43 PM
--- NOTE | 2020-02-15 12:51 | Progress Note ---
DATE: SUBJECTIVE: The patient had some desaturations this morning and had to have oxygen increased to 4 L. She was placed in a prone position. Today, she feels better. She is not having any cough. She has no chest pain. PHYSICAL EXAMINATION: VITAL SIGNS: The blood pressure is 128/61, saturation is 95% on 5 L and the pulse is 86, the respiratory rate is 27. Temperature is 99.8. HEENT: Shows no facial swelling or erythema. LYMPHATIC: Shows no submandibular, cervical or supraclavicular adenopathy. CARDIAC: Reveals regular rate and rhythm with normal S1 and S2. LUNGS: Auscultation of lungs shows crackles and rhonchi bilaterally. There is no wheezing. ABDOMEN: Soft and nontender. There is no rebound or guarding. EXTREMITIES: Shows no leg edema or calf tenderness. There is no cyanosis or clubbing. SKIN: Shows no rashes. NEUROLOGICAL: Shows no focal abnormalities. LABORATORY DATA: The white blood cell count is 11.1, hemoglobin is 11.3, and the platelet count is 198,000. BUN to creatinine ratio is 29 to 1.14. Other electrolytes are within normal limits. IMPRESSION: 1. Viral pneumonia and coronavirus disease-2019 infection. 2. Chronic obstructive pulmonary disease. 3. Chronic renal insufficiency, stage 3. PLAN: 1. Complete remdesivir. 2. Continue Lovenox for DVT prophylaxis. 3. Rocephin and Zithromax. 4. Continue oxygen. 5. Out of bed as tolerated. 6. Complete dexamethasone. 7. Complete remdesivir. 8. Continue to monitor and control blood sugars. Leopoldo Weber MD [facility]/MODL /[id number]
[2020-02-15 14:53] LABS: FREE T4 (FREE THYROXINE) 1.28 ng/dL (0.8-1.8); THYROID STIMULATING HORMONE 1.321 uIU/mL (0.350-4.940)
[2020-02-15] MEDS: CEFTRIAXONE SOD 2 GM/NS 100 ML 100 ML IV SCH (15:25)
[2020-02-15] MEDS: AZITHROMYCIN 500MG/NS 250 ML 250 ML IV SCH (16:46)
--- NOTE | 2020-02-15 17:51 | Consultation ---
DATE OF CONSULTATION: 02/15/2020 Endocrine Consultation The patient of Dr. Smith. Thank you very much for referring this patient. HISTORY OF PRESENT ILLNESS: This is a 74-year-old lady, who was referred to me for evaluation of uncontrolled diabetes mellitus. The patient reportedly is a known diabetic for almost 18 to 20 years and takes a combination of the Lantus and Humalog insulin at home. The patient came to the hospital with history of pneumonia and she was found to be COVID positive. The patient also has history of hypertension and hyperlipidemia. The patient has decreased oral intake. At the time of admission, her blood sugar was 371, but her anion gap was within the range. PHYSICAL EXAMINATION: GENERAL: Today, the patient is alert, awake, little bit apprehensive. She is slightly dehydrated. VITAL SIGNS: Her heart rate is around 78, blood pressure is 107/60 mmHg. HEENT: Essentially unremarkable. Thyroid is palpable. Clinically, she is near euthyroid. CHEST: Bilateral vesicular breathing. She has mild bronchospasm. CARDIAC: First and second heart sound. There is no third or fourth heart sound. Ejection systolic murmur grade 2/6. Her O2 saturations are around 95. The patient has been started on steroids. CLINICAL IMPRESSION: Diabetes mellitus type 2, uncontrolled with complications, precipitated by steroids, COVID-19 positive pneumonia, and hypertension. PLAN: At this time is to do a hemoglobin A1c, thyroid function tests, monitor her blood sugars closely, and start on the Humalog 3 times a day along with the Lantus. Thank you for referring this patient. I will be following this patient with you. MD SOBIA Flanagan/MODL /[id number]
--- NOTE | 2020-02-15 18:36 | NUR ---
patient remains proned on stomach. o2 at 5L nasal cannula. states she feels better after getting some sleep on her belly.
--- NOTE | 2020-02-15 20:30 | NUR ---
PATIENT RESTING IN BED IN STABLE CONDITION, NO SIGNS OF DISTRESS NOTED. PATIENT IS LYING IN PRONE POSITION AND VOICES THAT SHE FEELS MUCH BETTER IN THAT POSITION, O2 SATS ARE IN NORMAL CONDITION. PATIENT VOICES NO PAIN AT THIS TIME AND IV FLUIDS ARE RUNNING AT ORDERED RATE. BED IS IN LOWEST POSITION, BOTH SIDE RAILS ARE UP, CALL LIGHT IS WITHIN EASY REACH, WILL CONTINUE TO MONITOR.
[2020-02-15] MEDS: ATORVASTATIN 40 MG TAB PO SCH (20:36)
[2020-02-15] MEDS: INSULIN GLARGINE 100 UNITS/ML VIAL SQ SCH (20:36)
[2020-02-16] VITALS (8 sets, daily range): BP systolic 109–140; BP diastolic 45–59
[2020-02-16] MEDS: ALBUTEROL SULFATE HFA 8GM INHALATION AEROSOL INH SCH ×4 (02:30→20:05)
[2020-02-16 05:30] LABS: BASOPHILS % 0.1 % (0.0-1.0); HEMATOCRIT 35.2 % (34.2-44.1); HEMOGLOBIN 11.3 g/dL (12.0-16.0); LYMPHOCYTES # (AUTO) 0.9 (1.0-3.2); LYMPHOCYTES % 8.2 % (18.0-39.1); MEAN CORPUSCULAR HGB CONC 32.1 g/dL (31-35); MEAN CORPUSCULAR VOLUME 84.2 fL (81-99); MONOCYTES # (AUTO) 0.4 (0.2-0.8); MONOCYTES % 3.4 % (4.4-11.3); NEUTROPHILS # (AUTO) 9.4 (2.1-6.9); NEUTROPHILS % 87.7 % (38.7-80.0); PLATELET COUNT 199 x10e3/uL (140-360); RED BLOOD COUNT 4.18 x10e6/uL (3.6-5.1); RED CELL DISTRIBUTION WIDTH 14.4 % (11.7-14.4)
[2020-02-16 05:44] LABS: ALANINE AMINOTRANSFERASE 17 IU/L (0-55); ALBUMIN 2.2 g/dL (3.5-5.0); ALBUMIN/GLOBULIN RATIO 0.5 (0.8-2.0); ALKALINE PHOSPHATASE 53 IU/L (40-150); BLOOD UREA NITROGEN 22 mg/dL (7-26); BUN/CREATININE RATIO 26 (6-25); CALCIUM 8.3 mg/dL (8.4-10.2); CARBON DIOXIDE 23 mmol/L (22-29); CHLORIDE 108 mmol/L (98-107); CREATININE, SERUM 0.85 mg/dL (0.57-1.11); EST GLOMERULAR FILTRATION RATE > 60 ML/MIN (60-); GLUCOSE 145 mg/dL (74-118); SODIUM 141 mmol/L (136-145)
[2020-02-16] MEDS: INSULIN LISPRO 100 UNIT/1 ML 3ML VIAL SQ SCH ×7 (07:30→20:05)
--- NOTE | 2020-02-16 08:38 | Diagnostic Imaging Report ---
TECHNIQUE: Frontal view of the chest. INDICATION: ^resp failure ^[id number] ^0600 COMPARISON: 02/14/2020 and 02/15/2020 DISCUSSION: Limited evaluation due to portable technique. Lines and hardware: Overlying EKG leads are noted. Heart and mediastinum: Stable. Lungs and pleura: Compared to x-ray dated 02/14/2020 there is interval worsening of bilateral patchy airspace opacities with a perihilar and peripheral predominance. Findings are similar when compared to CT chest dated 02/15/2020. Negative for large effusion or pneumothorax. Soft tissues and bones: No acute abnormality. IMPRESSION: Redemonstration of bilateral perihilar and peripheral predominant patchy airspace opacities, worsened since 02/14/2020 and stable compared to 02/15/2020. Signed by: Lev Bailey MD on 02/16/2020 8:35 AM
[2020-02-16] MEDS: TOLTERODINE TARTRATE 2 MG CAPCR PO SCH ×2 (08:45→17:00)
[2020-02-16] MEDS: DEXAMETHASONE SOD PHOS INJ 4 MG/ML VIAL IV SCH (08:45)
[2020-02-16] MEDS: MEMANTINE 10 MG TAB PO SCH (08:46)
[2020-02-16] MEDS: ASCORBIC ACID 500 MG TAB PO SCH ×2 (08:46→17:00)
[2020-02-16] MEDS: ENOXAPARIN INJ 80 MG/0.8 ML SYR SC SCH ×2 (08:46→17:00)
[2020-02-16] MEDS: GUAIFENESIN 600 MG TAB PO SCH ×2 (08:46→17:00)
[2020-02-16] MEDS: BENZONATATE 100 MG CAP PO SCH ×3 (08:46→20:05)
[2020-02-16] MEDS: ZINC SULFATE 50 MG CAP PO SCH (08:46)
[2020-02-16] MEDS: VENLAFAXINE HCL 75 MG CAPCR PO SCH ×2 (08:46→17:00)
[2020-02-16] MEDS: METOPROLOL SUCCINATE 50 MG TAB XL PO SCH ×2 (08:53→17:01)
[2020-02-16] MEDS ORDERED: REMDESIVIR 100MG/NS 100ML 100 MG in SODIUM CHLORIDE 0.9% 100 ML 100 ML IV SCH (09:00)
--- NOTE | 2020-02-16 09:15 | NUR ---
DAUGHTER SHAVONNE IS [employer] WILL NOT CONSIDER ANY TYPE OF PLACEMENT, COMPLETED DPA. SHE STATES IF ANYTHING IS NEEDED THEN TO CALL HER. GAVE RESOURCES FOR SENIOR RESOURCE GUIDE AND PROVIDER SERVICES IN CASE NEEDS IN FUTURE
--- NOTE | 2020-02-16 09:44 | Progress Note ---
DATE: SUBJECTIVE: The patient is afebrile. She still has dyspnea with exertion. She has very limited exercise tolerance. PHYSICAL EXAMINATION: VITAL SIGNS: The blood pressure is 140/49, saturation is 96% on 5 L and the pulse is 54. HEENT: Shows no facial swelling or erythema. LYMPHATIC: Shows no submandibular, cervical, or supraclavicular adenopathy. CARDIAC: Reveals regular rate and rhythm with normal S1, S2. LUNGS: Auscultation of lungs reveals rhonchorous breath sounds bilaterally. There is no wheezing. ABDOMEN: Soft and nontender. There is no rebound or guarding. EXTREMITIES: Shows no leg edema or calf tenderness. There is no cyanosis or clubbing. SKIN: Shows no rashes. NEUROLOGICAL: Shows no focal abnormalities. LABORATORY DATA: White blood cell count is 10.7, hemoglobin is 11.3, and the platelet count is 199. The PFS-bb-pjzwxjozuh ratio is 22 to 0.85 and the other electrolytes are within normal limits. The albumin is 2.2. IMPRESSION: 1. Viral pneumonia and COVID-19 infection. 2. Chronic renal insufficiency. 3. Chronic obstructive pulmonary disease. PLAN: 1. Complete remdesivir. 2. Out of bed as tolerated. 3. Physical therapy. 4. Oxygen. 5. Continue Rocephin and Zithromax. 6. Dexamethasone. 7. Monitor and control blood sugars. Leopoldo Weber MD [facility]/MODL /[id number]
[2020-02-16] MEDS: REMDESIVIR 100MG/NS 100ML 100 MG in SODIUM CHLORIDE 0.9% 100 ML 100 ML IV SCH (13:25)
--- NOTE | 2020-02-16 14:32 | NUR ---
ON 5 LITERS 02 N.C. LAST DOSE OF REMDESIVIR SATURDAY WILL ATTEMPT TO WEAN AND GET HOME 02 EVAL CLOSER TO DC PT SELF PRONE POSITIONING
[2020-02-16] MEDS: CEFTRIAXONE SOD 2 GM/NS 100 ML 100 ML IV SCH (15:50)
[2020-02-16] MEDS: AZITHROMYCIN 500MG/NS 250 ML 250 ML IV SCH (17:02)
[2020-02-16] MEDS: ATORVASTATIN 40 MG TAB PO SCH (20:05)
[2020-02-16] MEDS: INSULIN GLARGINE 100 UNITS/ML VIAL SQ SCH (20:05)
--- NOTE | 2020-02-16 20:05 | NUR ---
PATIENT RESTING IN BED IN STABLE CONDITION, NO SIGNS OF DISTRESS NOTED. PATIENT IS LYING IN PRONE POSITION AND NASAL CANNULA IS INTACT AND RUNNING AT 3.5 LITERS, O2 SATS ARE IN NORMAL CONDITION. PATIENT VOICES NO PAIN AT THIS TIME AND IV FLUIDS ARE RUNNING AT ORDERED RATE. BED IS IN LOWEST POSITION, BOTH SIDE RAILS ARE UP, CALL LIGHT IS WITHIN EASY REACH, WILL CONTINUE TO MONITOR.
[2020-02-17] VITALS (8 sets, daily range): BP systolic 103–143; BP diastolic 49–84
[2020-02-17] MEDS: ALBUTEROL SULFATE HFA 8GM INHALATION AEROSOL INH SCH ×4 (00:45→19:00)
[2020-02-17] MEDS: INSULIN LISPRO 100 UNIT/1 ML 3ML VIAL SQ SCH ×7 (08:00→21:21)
[2020-02-17 09:30] LABS: BASOPHILS % 0.2 % (0.0-1.0); HEMATOCRIT 35.6 % (34.2-44.1); HEMOGLOBIN 11.5 g/dL (12.0-16.0); LYMPHOCYTES # (AUTO) 0.9 (1.0-3.2); LYMPHOCYTES % 7.8 % (18.0-39.1); MEAN CORPUSCULAR HEMOGLOBIN 27.4 pg (28-32); MEAN CORPUSCULAR HGB CONC 32.3 g/dL (31-35); MEAN CORPUSCULAR VOLUME 84.8 fL (81-99); MONOCYTES # (AUTO) 0.6 (0.2-0.8); MONOCYTES % 5.3 % (4.4-11.3); NEUTROPHILS % 86.3 % (38.7-80.0); PLATELET COUNT 262 x10e3/uL (140-360); RED CELL DISTRIBUTION WIDTH 14.2 % (11.7-14.4)
[2020-02-17 09:53] LABS: ALBUMIN 2.2 g/dL (3.5-5.0); ALBUMIN/GLOBULIN RATIO 0.5 (0.8-2.0); ANION GAP 16.7 mmol/L (8-16); CALCIUM 8.2 mg/dL (8.4-10.2); CREATININE, SERUM 0.92 mg/dL (0.57-1.11); POTASSIUM 3.7 mmol/L (3.5-5.1)
[2020-02-17] MEDS: DEXAMETHASONE SOD PHOS INJ 4 MG/ML VIAL IV SCH (09:59)
[2020-02-17] MEDS: VENLAFAXINE HCL 75 MG CAPCR PO SCH ×2 (09:59→17:01)
[2020-02-17] MEDS: GUAIFENESIN 600 MG TAB PO SCH ×2 (09:59→17:01)
[2020-02-17] MEDS: ZINC SULFATE 50 MG CAP PO SCH (10:00)
[2020-02-17] MEDS: BENZONATATE 100 MG CAP PO SCH ×3 (10:00→21:01)
[2020-02-17] MEDS: MEMANTINE 10 MG TAB PO SCH (10:01)
[2020-02-17] MEDS: ASCORBIC ACID 500 MG TAB PO SCH ×2 (10:02→17:01)
[2020-02-17] MEDS: METOPROLOL SUCCINATE 50 MG TAB XL PO SCH ×2 (10:03→17:01)
--- NOTE | 2020-02-17 11:00 | NUR ---
Handoff report to IMCU nurse, patient transferred to room 198 via bed on 10 liters with non-rebreather sating at 98%
--- NOTE | 2020-02-17 11:04 | NUR ---
INFECTIOUS DISEASE PROGRESS NOTE DR. TATYANA COTTON HISTORY OF PRESENT ILLNESS: Pneumonia in this patient who is a 74-year-old who has history of obesity, history of hypertension, and diabetes. She has been sick for a couple of weeks. Her family did have COVID. The patient comes in because she is short of breath and for the last 2 weeks she has been having some sore throat and cough and now she is having shortness of breath. The patient was in the emergency room. She is to being evaluated and going to be admitted. I am asked to see her. Her chest x-ray showed diffuse interstitial alveolar airspace opacities suggestive of edema and/or pneumonia. PAST MEDICAL HISTORY: Diabetes mellitus and hypertension. REVIEW OF SYSTEMS: +Fatigue Beside what is noted above, denies any. PHYSICAL EXAMINATION: GENERAL: She is currently alert, oriented, does not seem to be in acute distress. VITAL SIGNS: Stable, currently afebrile. HEENT: She is not icteric. normocephalic NECK: Supple. no JVD CHEST: Crackles bilateral. symmetric expansion, on oxygen HEART: S1, S2. no s3, s4 ABDOMEN: Soft. Bowel sounds present. EXTREMITIES: No edema. moves all SKIN: No rash. no edema IMPRESSION: Atypical pneumonia COVID-19 community-acquired pneumonia T2DM PLAN COVID protocol RMSV -Per the RN, the patient desaturated during breakfast to 70's, she put her on HF 15LPM. -Pt was later titrated back to 3.5LPM while proning. CTA ordered and negative for PE Hyperglycemia, endocrine consulted; input appreciated Decadron x10 days only Will transfer pt to [facility] attempted to call daughter twice, line was busy Fara Harrell MSN, CRUSHER ASSEMBLER, AGACNP- d/w Tatyana Cotton M.D
[2020-02-17] MEDS: TOLTERODINE TARTRATE 2 MG CAPCR PO SCH ×2 (11:25→17:01)
[2020-02-17] MEDS: ENOXAPARIN 30 MG/0.3 ML SYR SC SCH ×2 (11:25→17:01)
--- NOTE | 2020-02-17 11:35 | NUR ---
Transfer from room 176 to IMCU 198 with portable monitor and tele pack, place to monitor, place to Prone position on 100% nonrebreather with Nurse Felicia via bed . NIPPING MACHINE OPERATOR Debbie at bedside placed pt on 4lpm/NC ok to keep sats 88% to 92%
--- NOTE | 2020-02-17 11:45 | Progress Note ---
DATE: Pulmonary Critical Care Progress Note SUBJECTIVE: The patient is having some desaturations after breakfast. She was placed in the prone position and was placed on 100% non-rebreather. PHYSICAL EXAMINATION: VITAL SIGNS: Blood pressure is 111/60, saturation is 100% on a non-rebreather and a nasal cannula. HEENT: Shows no facial swelling or erythema. LYMPHATIC: Shows no submandibular, cervical, or supraclavicular adenopathy. CARDIAC: Reveals regular rate and rhythm with normal S1 and S2. LUNGS: Auscultation of lungs reveals rhonchorous breath sounds bilaterally. There is no wheezing. ABDOMEN: Soft and nontender. There is no rebound or guarding. EXTREMITIES: Show no leg edema or calf tenderness. There is no cyanosis or clubbing. SKIN: Shows no rashes. NEUROLOGICAL: Shows no focal abnormalities. LABORATORY DATA: BUN to creatinine ratio is 31 to 0.92 and the carbon dioxide is 21. The other electrolytes are within normal limits. Albumin is 2.2. White blood cell count is 14.6 and the hemoglobin is 11.5. The platelet count is 262. IMPRESSION: 1. Viral pneumonia and COVID-19 infection. 2. Chronic renal insufficiency. 3. Chronic obstructive pulmonary disease. PLAN: 1. Complete remdesivir. 2. Physical therapy. 3. Continue Rocephin and Zithromax. 4. Dexamethasone. 5. Transfer the patient to [facility]. 6. Airvo. Leopoldo Weber MD [facility]/MODL /[id number]
[2020-02-17] MEDS: REMDESIVIR 100MG/NS 100ML 100 MG in SODIUM CHLORIDE 0.9% 100 ML 100 ML IV SCH (13:23)
[2020-02-17] MEDS: CEFTRIAXONE SOD 2 GM/NS 100 ML 100 ML IV SCH (14:19)
--- NOTE | 2020-02-17 14:48 | NUR ---
accidently drop herbert perle on the floor pulled another one pt aware
[2020-02-17] MEDS: AZITHROMYCIN 500MG/NS 250 ML 250 ML IV SCH (15:21)
[2020-02-17] MEDS: ATORVASTATIN 40 MG TAB PO SCH (21:01)
[2020-02-17] MEDS: INSULIN GLARGINE 100 UNITS/ML VIAL SQ SCH (21:23)
[2020-02-18] VITALS (9 sets, daily range): BP systolic 120–151; BP diastolic 52–68
[2020-02-18] MEDS: ALBUTEROL SULFATE HFA 8GM INHALATION AEROSOL INH SCH ×3 (01:00→12:53)
[2020-02-18 05:13] LABS: BASOPHILS % 0.1 % (0.0-1.0); HEMATOCRIT 35.2 % (34.2-44.1); HEMOGLOBIN 11.5 g/dL (12.0-16.0); LYMPHOCYTES # (AUTO) 0.9 (1.0-3.2); LYMPHOCYTES % 9.6 % (18.0-39.1); MEAN CORPUSCULAR HEMOGLOBIN 27.3 pg (28-32); MEAN CORPUSCULAR HGB CONC 32.7 g/dL (31-35); MEAN CORPUSCULAR VOLUME 83.6 fL (81-99); MONOCYTES # (AUTO) 0.6 (0.2-0.8); NEUTROPHILS # (AUTO) 7.5 (2.1-6.9); NEUTROPHILS % 82.4 % (38.7-80.0); PLATELET COUNT 285 x10e3/uL (140-360); RED BLOOD COUNT 4.21 x10e6/uL (3.6-5.1); RED CELL DISTRIBUTION WIDTH 14.4 % (11.7-14.4)
[2020-02-18 05:29] LABS: ALANINE AMINOTRANSFERASE 16 IU/L (0-55); ALBUMIN 2.2 g/dL (3.5-5.0); ALBUMIN/GLOBULIN RATIO 0.6 (0.8-2.0); ALKALINE PHOSPHATASE 61 IU/L (40-150); ANION GAP 13.6 mmol/L (8-16); BLOOD UREA NITROGEN 29 mg/dL (7-26); BUN/CREATININE RATIO 36 (6-25); CALCIUM 8.1 mg/dL (8.4-10.2); CARBON DIOXIDE 22 mmol/L (22-29); CHLORIDE 110 mmol/L (98-107); EST GLOMERULAR FILTRATION RATE > 60 ML/MIN (60-); GLUCOSE 96 mg/dL (74-118); POTASSIUM 3.6 mmol/L (3.5-5.1); SODIUM 142 mmol/L (136-145)
[2020-02-18] MEDS: INSULIN LISPRO 100 UNIT/1 ML 3ML VIAL SQ SCH ×7 (07:30→21:15)
--- NOTE | 2020-02-18 08:10 | NUR ---
Daughter Samanta called emotional support given asked me to have Dr To call her
[2020-02-18] MEDS: GUAIFENESIN 600 MG TAB PO SCH ×2 (08:46→16:49)
[2020-02-18] MEDS: DEXAMETHASONE SOD PHOS INJ 4 MG/ML VIAL IV SCH (08:46)
[2020-02-18] MEDS: VENLAFAXINE HCL 75 MG CAPCR PO SCH ×2 (08:46→16:46)
[2020-02-18] MEDS: TOLTERODINE TARTRATE 2 MG CAPCR PO SCH ×2 (08:46→16:46)
[2020-02-18] MEDS: MEMANTINE 10 MG TAB PO SCH (08:46)
[2020-02-18] MEDS: ENOXAPARIN 30 MG/0.3 ML SYR SC SCH ×2 (08:48→16:47)
[2020-02-18] MEDS: ASCORBIC ACID 500 MG TAB PO SCH ×2 (08:48→16:47)
[2020-02-18] MEDS: METOPROLOL SUCCINATE 50 MG TAB XL PO SCH ×2 (08:48→16:47)
[2020-02-18] MEDS: ZINC SULFATE 50 MG CAP PO SCH (08:48)
[2020-02-18] MEDS: BENZONATATE 100 MG CAP PO SCH ×3 (09:25→21:14)
--- NOTE | 2020-02-18 10:00 | NUR ---
Dr Smith phoned daughter Casco update given and questions answered.
--- NOTE | 2020-02-18 10:37 | NUR ---
Daughter phoned about bringing food for patient told it was ok
--- NOTE | 2020-02-18 10:50 | NUR ---
Dr Weber at bedside see orders and notes
--- NOTE | 2020-02-18 11:00 | NUR ---
Repositioned to supine for xray replaced leads and pulse ox probe increased o2 to 6L during xray due to sats 83% after 10 min. Patient remains supine returned to 4Lpm/NC sats 94%. "states it feels great to sit up and not on her stomach". Will continue to monitor close HR 56 Bradycardia.
--- NOTE | 2020-02-18 11:17 | Progress Note ---
DATE: SUBJECTIVE: The patient is now in the IMCU. Her oxygen is decreased to 4 L. PHYSICAL EXAMINATION: VITAL SIGNS: The blood pressure is 141/55, saturation is 92% on 4 L. HEENT: Shows no facial swelling or erythema. LYMPHATIC: Shows no submandibular, cervical or supraclavicular adenopathy. CARDIAC: Reveals regular rate and rhythm with normal S1 and S2. LUNGS: Auscultation of lungs reveals crackles and rhonchi bilaterally. There is no wheezing. ABDOMEN: Soft, nontender. There is no rebound or guarding. EXTREMITIES: Shows no leg edema or calf tenderness. There is no cyanosis or clubbing. SKIN: Shows no rashes. NEUROLOGICAL: Shows no focal abnormalities. LABORATORY DATA: White blood cell count is 9.09 and hemoglobin 11.5. The platelet count is 285. The BUN to creatinine ratio is 29 to 0.8 and the other electrolytes are within normal limits. The albumin is 2.2. IMPRESSION: 1. Viral pneumonia and coronavirus disease-2019 infection. 2. Chronic obstructive pulmonary disease. 3. Diabetes. PLAN: 1. Continue physical therapy. 2. Continue antibiotics. 3. Complete dexamethasone. 4. Complete remdesivir. Leopoldo Weber MD [facility]/MODL /[id number]
--- NOTE | 2020-02-18 11:43 | Diagnostic Imaging Report ---
TECHNIQUE: Frontal view of the chest. INDICATION: ^f/u on covid COMPARISON: 02/16/2020 DISCUSSION: Limited evaluation due to portable technique. Lines and hardware: Overlying EKG leads are again noted. Heart and mediastinum: Stable. Lungs and pleura: Compared to 02/16/2020 there is no significant change in bilateral patchy airspace opacities with a perihilar and peripheral predominance. No new large effusion or pneumothorax. Soft tissues and bones: No acute abnormality. IMPRESSION: No significant change compared to 02/16/2020. Signed by: Lev Bailey MD on 02/18/2020 11:40 AM
[2020-02-18] MEDS: REMDESIVIR 100MG/NS 100ML 100 MG in SODIUM CHLORIDE 0.9% 100 ML 100 ML IV SCH (12:05)
--- NOTE | 2020-02-18 12:05 | NUR ---
INFECTIOUS DISEASE PROGRESS NOTE DR. TATYANA COTTON HISTORY OF PRESENT ILLNESS: Pneumonia in this patient who is a 74-year-old who has history of obesity, history of hypertension, and diabetes. She has been sick for a couple of weeks. Her family did have COVID. The patient comes in because she is short of breath and for the last 2 weeks she has been having some sore throat and cough and now she is having shortness of breath. The patient was in the emergency room. She is to being evaluated and going to be admitted. I am asked to see her. Her chest x-ray showed diffuse interstitial alveolar airspace opacities suggestive of edema and/or pneumonia. PAST MEDICAL HISTORY: Diabetes mellitus and hypertension. REVIEW OF SYSTEMS: +Fatigue Beside what is noted above, denies any. PHYSICAL EXAMINATION: GENERAL: She is currently alert, oriented VITAL SIGNS: Stable, currently afebrile. HEENT: She is not icteric. normocephalic NECK: Supple. no JVD CHEST: Crackles bilateral. symmetric expansion, on oxygen HEART: S1, S2. no s3, s4 ABDOMEN: Soft. Bowel sounds present. EXTREMITIES: No edema. moves all SKIN: No rash. no edema IMPRESSION: Atypical pneumonia COVID-19 community-acquired pneumonia T2DM PLAN COVID protocol RMSV x5 days CTA ordered and negative for PE Hyperglycemia, endocrine consulted; input appreciated Decadron x10 days only supportive care Fara Harrell MSN, PRODUCTION UTILITY WORKER, AGACNP-BC d/w Tatyana Cotton M.D
[2020-02-18] MEDS: CEFTRIAXONE SOD 2 GM/NS 100 ML 100 ML IV SCH (14:34)
--- NOTE | 2020-02-18 14:40 | NUR ---
Daughter in law Rosanne phoned update given and informed of patient to transfer to ICU when bed is available voices understanding
--- NOTE | 2020-02-18 14:57 | NUR ---
Daughter Samanta phoned update given
--- NOTE | 2020-02-18 15:25 | NUR ---
Patient ambulating in room with physical therapy see shalonda increased o2 to 6 liter during evaluation
--- NOTE | 2020-02-18 16:36 | NUR ---
Nutrition Intervention Note RD Recommendation(s) for Physician: -Continue current diet as ordered -Continue Glucerna nutrition supplement shakes with meals Plan of Care: RD following, monitoring for tolerance and adequacy, oral supplement recommendation Nutrition reason for involvement: MD consult, length of stay RD Assessment (02/17) Pt is a 74 year old female admitted with pneumonia due to COVID-19. Unable to enter room due to isolation precautions. RD called pts room phone, but she did not answer. Spoke to RN who reported pt ate about 50% of her lunch and only drink a nutrition shake for breakfast this morning since pt is short of breath. Pts last recorded weight was 180 lbs in February 2014 per weight history. Pt currently has a weight of 166 lbs. Recommend to continue Glucerna nutrition supplements with meals and encourage PO intake. Will continue to monitor. Principal Problems/Diagnoses: pneumonia due to COVID-19. PMH: Hypertension, diabetes, mild dementia, and COPD. GI: soft/non-tender/round abdomen, last recorded BM 02/17 x 2 Skin: intact Labs: (02/17) Na 142, K 3.6, BUN 29, Cr 0.80, Glu 96, Ca 8.1 Meds: antibiotic, insulin, metoprolol, zinc sulfate, vitamin C, dexmethasone, atorvastatin, zofran Ht: 61 in Wt: 166 lbs BMI: 31.4 kg/m2 IBW: 105 lbs Malnutrition Evaluation (02/18/20) Unable to assess. Will re-evaluate at follow-up as appropriate. Nutrition Prescription (Diet Order): 1800 ADA Estimated Nutritional Needs: [id number] calories/day (22-25 kcal/kg IBW) 72-95 g protein/day (1.5-2 g pro/kg IBW) Diet Adequacy: Not meeting calorie needs, Not meeting protein needs Tolerance: Tolerating PO Diet Education Needs Assessment: Diet education not indicated Nutrition Care Level: low Nutrition Diagnosis: Inadequate energy intake related to decreased ability to consume sufficient energy as evidenced by insufficient intake from diet compared to needs. Goal: Patient will meet 75-100% of estimated needs by follow up Progress: N/A Interventions: -carbohydrate -modified diet, Commercial beverage, Collaboration with other providers Monitoring/Evaluation: -Total energy intake, Total protein intake, Modified diet, Liquid supplement, Weight change Signed: Camryn Staley RD, LD
--- NOTE | 2020-02-18 19:30 | NUR ---
Pt. resting quietly. Oxygen on 2L per nasal cannula. Respirations are even and unlabored.
[2020-02-18] MEDS: ATORVASTATIN 40 MG TAB PO SCH (21:14)
[2020-02-18] MEDS: INSULIN GLARGINE 100 UNITS/ML VIAL SQ SCH (21:16)
[2020-02-19] VITALS (8 sets, daily range): BP systolic 88–149; BP diastolic 52–83
[2020-02-19 04:42] LABS: BASOPHILS % 0.1 % (0.0-1.0); HEMATOCRIT 38.6 % (34.2-44.1); HEMOGLOBIN 12.5 g/dL (12.0-16.0); LYMPHOCYTES # (AUTO) 0.8 (1.0-3.2); LYMPHOCYTES % 8.4 % (18.0-39.1); MEAN CORPUSCULAR HGB CONC 32.4 g/dL (31-35); MEAN CORPUSCULAR VOLUME 83.4 fL (81-99); MONOCYTES # (AUTO) 0.5 (0.2-0.8); MONOCYTES % 5.4 % (4.4-11.3); NEUTROPHILS # (AUTO) 8.3 (2.1-6.9); NEUTROPHILS % 84.9 % (38.7-80.0); PLATELET COUNT 290 x10e3/uL (140-360); RED BLOOD COUNT 4.63 x10e6/uL (3.6-5.1); RED CELL DISTRIBUTION WIDTH 14.4 % (11.7-14.4)
[2020-02-19 05:08] LABS: ALANINE AMINOTRANSFERASE 24 IU/L (0-55); ALBUMIN 2.2 g/dL (3.5-5.0); ALBUMIN/GLOBULIN RATIO 0.6 (0.8-2.0); ALKALINE PHOSPHATASE 66 IU/L (40-150); ANION GAP 14.8 mmol/L (8-16); BLOOD UREA NITROGEN 28 mg/dL (7-26); BUN/CREATININE RATIO 34 (6-25); CALCIUM 8.4 mg/dL (8.4-10.2); CARBON DIOXIDE 23 mmol/L (22-29); CHLORIDE 108 mmol/L (98-107); CREATININE, SERUM 0.82 mg/dL (0.57-1.11); EST GLOMERULAR FILTRATION RATE > 60 ML/MIN (60-); GLUCOSE 130 mg/dL (74-118); POTASSIUM 3.8 mmol/L (3.5-5.1); SODIUM 142 mmol/L (136-145)
[2020-02-19] MEDS: ALBUTEROL SULFATE HFA 8GM INHALATION AEROSOL INH SCH ×3 (07:00→16:57)
[2020-02-19] MEDS: INSULIN LISPRO 100 UNIT/1 ML 3ML VIAL SQ SCH ×7 (07:30→19:47)
--- NOTE | 2020-02-19 07:45 | Progress Note ---
DATE: SUBJECTIVE: The patient is feeling better. She has less dyspnea and less cough. PHYSICAL EXAMINATION: VITAL SIGNS: The blood pressure is 140/63, saturation is 98% on 4 L and the pulse is 53. HEENT: Shows no facial swelling or erythema. LYMPHATIC: Shows no submandibular, cervical, or supraclavicular adenopathy. CARDIAC: Reveals regular rate and rhythm with normal S1, S2. LUNGS: Auscultation of lungs reveals crackles at the bases. There is no wheezing. ABDOMEN: Soft, nontender. There is no rebound or guarding. EXTREMITIES: Shows no leg edema or calf tenderness. There is no cyanosis, clubbing. LABORATORY DATA: White blood cell count 9.75, hemoglobin is 12.5, and the platelet count is 290. The BUN to creatinine ratio is 28 to 0.8. The other electrolytes within normal limits. Albumin is 2.2. IMPRESSION: 1. Viral pneumonia and COVID-19 infection. 2. Chronic obstructive pulmonary disease. 3. Diabetes. PLAN: 1. Continue dexamethasone. 2. Continue antibiotics. 3. Continue to monitor control blood sugars. 4. Complete Remdesivir. Leopoldo Weber MD [facility] /[id number]
[2020-02-19] MEDS: BENZONATATE 100 MG CAP PO SCH ×3 (08:35→19:44)
[2020-02-19] MEDS: GUAIFENESIN 600 MG TAB PO SCH ×2 (08:35→16:55)
[2020-02-19] MEDS: VENLAFAXINE HCL 75 MG CAPCR PO SCH ×2 (08:35→16:55)
[2020-02-19] MEDS: DEXAMETHASONE SOD PHOS INJ 4 MG/ML VIAL IV SCH (08:35)
[2020-02-19] MEDS: MEMANTINE 10 MG TAB PO SCH (08:35)
[2020-02-19] MEDS: TOLTERODINE TARTRATE 2 MG CAPCR PO SCH ×2 (08:35→16:55)
[2020-02-19] MEDS: METOPROLOL SUCCINATE 50 MG TAB XL PO SCH ×2 (08:36→16:56)
[2020-02-19] MEDS: ASCORBIC ACID 500 MG TAB PO SCH ×2 (08:37→16:56)
[2020-02-19] MEDS: ENOXAPARIN 30 MG/0.3 ML SYR SC SCH ×2 (08:37→16:56)
[2020-02-19] MEDS: ZINC SULFATE 50 MG CAP PO SCH (08:37)
[2020-02-19] MEDS ORDERED: DEXAMETHASONE SOD PHOS 10 MG/1 ML VIAL IV SCH (09:00)
[2020-02-19] MEDS: REMDESIVIR 100MG/NS 100ML 100 MG in SODIUM CHLORIDE 0.9% 100 ML 100 ML IV SCH (13:05)
--- NOTE | 2020-02-19 14:30 | NUR ---
Dr Katz here see notes
[2020-02-19] MEDS: CEFTRIAXONE SOD 2 GM/NS 100 ML 100 ML IV SCH (15:01)
--- NOTE | 2020-02-19 16:45 | NUR ---
Dr Moraes at bedside see notes maybe discharge home next week.
[2020-02-19] MEDS: ATORVASTATIN 40 MG TAB PO SCH (19:44)
[2020-02-19] MEDS: INSULIN GLARGINE 100 UNITS/ML VIAL SQ SCH (19:48)
--- NOTE | 2020-02-19 19:49 | Progress Note ---
DATE: SUBJECTIVE: Ms. Paulson is doing better today. There are no new complaints. She is still on 4 L, but she is improving. REVIEW OF SYSTEMS: Unremarkable. PHYSICAL EXAMINATION: GENERAL: She is currently alert and oriented. VITAL SIGNS: Stable, currently afebrile. HEENT: She is not icteric. NECK: Supple. CHEST: Crackles bilateral. HEART: S1 and S2. ABDOMEN: Soft. Bowel sounds present. EXTREMITIES: No edema. SKIN: No rash. IMPRESSION: COVID-19, respiratory failure, slowly getting better. We will observe next couple days getting to improve. We will discharge home with home oxygen on Saturday. To finish remdesivir. To finish course of antibiotic as ordered. To finish 10 days of dexamethasone. Discussed with her daughter. MD MILAGRO [facility]/[place] /[id number]
[2020-02-20] VITALS (20 sets, daily range): BP systolic 108–161; BP diastolic 50–75
[2020-02-20] MEDS: ALBUTEROL SULFATE HFA 8GM INHALATION AEROSOL INH SCH ×5 (01:00→23:41)
[2020-02-20] MEDS: INSULIN LISPRO 100 UNIT/1 ML 3ML VIAL SQ SCH ×7 (07:30→21:39)
--- NOTE | 2020-02-20 08:10 | NUR ---
Phoned Dr Weber [phone] left message of change of status on 100% nonrebreather and prone position
[2020-02-20 08:12] LABS: BASOPHILS % 0.2 % (0.0-1.0); EOSINOPHILS % 0.1 % (0.0-6.0); HEMATOCRIT 39.5 % (34.2-44.1); HEMOGLOBIN 12.6 g/dL (12.0-16.0); LYMPHOCYTES # (AUTO) 1.4 (1.0-3.2); LYMPHOCYTES % 8.6 % (18.0-39.1); MEAN CORPUSCULAR HEMOGLOBIN 27.6 pg (28-32); MEAN CORPUSCULAR HGB CONC 31.9 g/dL (31-35); MEAN CORPUSCULAR VOLUME 86.4 fL (81-99); MONOCYTES # (AUTO) 0.5 (0.2-0.8); MONOCYTES % 2.8 % (4.4-11.3); NEUTROPHILS # (AUTO) 13.9 (2.1-6.9); NEUTROPHILS % 86.9 % (38.7-80.0); PLATELET COUNT 307 x10e3/uL (140-360); RED BLOOD COUNT 4.57 x10e6/uL (3.6-5.1); RED CELL DISTRIBUTION WIDTH 14.2 % (11.7-14.4)
--- NOTE | 2020-02-20 08:20 | NUR ---
Dr Weber phoned back informed of patient change in condition on 100% nonrebreather prior shift nurse Desire states pt went to bedside commode and did not recovered. Informed him I attempted place on NC 10L, still desats 76% Placed prone on nonrebreather . Place on Airvo and Transfer to ICU. Called Dr England [phone] aware of patient condition change and transfer.
[2020-02-20 08:34] LABS: ALANINE AMINOTRANSFERASE 25 IU/L (0-55); ALBUMIN 2.3 g/dL (3.5-5.0); ALBUMIN/GLOBULIN RATIO 0.5 (0.8-2.0); ALKALINE PHOSPHATASE 70 IU/L (40-150); ANION GAP 14.4 mmol/L (8-16); BLOOD UREA NITROGEN 28 mg/dL (7-26); BUN/CREATININE RATIO 33 (6-25); CALCIUM 8.7 mg/dL (8.4-10.2); CARBON DIOXIDE 22 mmol/L (22-29); CHLORIDE 109 mmol/L (98-107); CREATININE, SERUM 0.84 mg/dL (0.57-1.11); EST GLOMERULAR FILTRATION RATE > 60 ML/MIN (60-); GLUCOSE 113 mg/dL (74-118); POTASSIUM 4.4 mmol/L (3.5-5.1); SODIUM 141 mmol/L (136-145)
[2020-02-20] MEDS: ZINC SULFATE 50 MG CAP PO SCH (09:48)
[2020-02-20] MEDS: GUAIFENESIN 600 MG TAB PO SCH ×2 (09:48→17:02)
[2020-02-20] MEDS: ASCORBIC ACID 500 MG TAB PO SCH ×2 (09:48→17:03)
[2020-02-20] MEDS: TOLTERODINE TARTRATE 2 MG CAPCR PO SCH (09:48)
[2020-02-20] MEDS: DEXAMETHASONE SOD PHOS INJ 4 MG/ML VIAL IV SCH (09:48)
[2020-02-20] MEDS: BENZONATATE 100 MG CAP PO SCH ×3 (09:48→21:39)
[2020-02-20] MEDS: ENOXAPARIN 30 MG/0.3 ML SYR SC SCH (09:48)
[2020-02-20] MEDS: MEMANTINE 10 MG TAB PO SCH (09:48)
[2020-02-20] MEDS: VENLAFAXINE HCL 75 MG CAPCR PO SCH ×2 (09:48→17:02)
[2020-02-20] MEDS: METOPROLOL SUCCINATE 50 MG TAB XL PO SCH ×2 (09:49→17:03)
--- NOTE | 2020-02-20 10:57 | Progress Note ---
DATE: Pulmonary Critical Care Progress Note SUBJECTIVE: The patient was transferred to the ICU because of desaturations. She was placed on Airvo. She is now on 50 L with 80% FiO2. She is in the prone position. OBJECTIVE: VITAL SIGNS: Blood pressure is 143/55, pulse is 71. HEENT: Shows no facial swelling or erythema. LYMPHATIC: Shows no submandibular, cervical, or supraclavicular adenopathy. CARDIAC: Reveals regular rate and rhythm with normal S1, S2. LUNGS: Auscultation of lungs reveals decreased breath sounds at the bases. There is no wheezing. ABDOMEN: Soft, nontender. There is no rebound or guarding. EXTREMITIES: Shows no leg edema or calf tenderness. There is no cyanosis or clubbing. SKIN: Shows no rashes. NEUROLOGICAL: Shows no focal abnormalities. LABORATORY DATA: BUN to creatinine ratio is 28 to 0.84. Other electrolytes are within normal limits. Albumin is 2.3. White blood cell count is 15.95 and hemoglobin is 12.6. The platelet count is 307. RADIOGRAPHIC DATA: The patient has bilateral interstitial infiltrates. IMPRESSION: 1. Viral pneumonia and COVID-19 infection. 2. Chronic obstructive pulmonary disease. 3. Diabetes. PLAN: 1. Continue Airvo. 2. Continue to use prone position. 3. Antibiotics have been escalated to meropenem. 4. Complete remdesivir. 5. Continue to monitor and control blood sugars. 6. Case was discussed with Nursing, Respiratory, Internal Medicine, and Infectious Disease. Greater than 35 minutes in direct critical care time. MD ADRIANA Henry/AL /[id number]
--- NOTE | 2020-02-20 11:00 | NUR ---
Phoned Dr Smith informed him patient is on Airvo 50L/90% unable to do CTA bc Airvo not compatible and patient to unstable and desats on 100% non rebeather per Jesus Alberto ALCOHOL LAW ENFORCEMENT AGENT and Nurse. Will revisit test in the future. Called and informed Mariangel in Radiology Dr Smith aware patient to unstable for CTA test today
[2020-02-20] MEDS: MEROPENEM 1GM 100 ML IV SCH ×3 (11:42→21:39)
[2020-02-20] MEDS: DOXYCYCLINE HYCLATE TABLET 100 MG TAB PO SCH ×2 (11:43→17:03)
--- NOTE | 2020-02-20 13:00 | NUR ---
pt status change to icu pt on hold Addendum: 02/20/20 at 1301 by Franklyn Lopez BAR WAITER/WAITRESS Amended: Links added.
--- NOTE | 2020-02-20 14:26 | NUR ---
Dr Moraes here called and updated daughter Fleming( In Length) and questions answered see his notes.
--- NOTE | 2020-02-20 14:33 | NUR ---
Ileana with speech evaluation done see her recommendations
--- NOTE | 2020-02-20 14:37 | NUR ---
Dr Moraes at bedside talking with patient
--- NOTE | 2020-02-20 14:45 | NUR ---
Phoned Dr Weber informed how exerted and patient desats when placing on bed galvez ok to place Carroll
--- NOTE | 2020-02-20 16:11 | NUR ---
Dr Katz here see note
[2020-02-20] MEDS ORDERED: ENOXAPARIN 30 MG/0.3 ML SYR SC SCH (17:00)
[2020-02-20] MEDS: ENOXAPARIN INJ 80 MG/0.8 ML SYR SC SCH (17:03)
--- NOTE | 2020-02-20 18:08 | Progress Note ---
DATE: SUBJECTIVE: Ms. Paulson became worse today, had to be transferred to the intensive care unit. She desaturated. She is currently on 50 L, 80% FiO2. She is on Airvo. She was on prone position earlier. She is feeling okay. Still short of breath, but there are no new complaints. I had a long conversation with her as well as with her daughter. The daughter understands the crucial condition that her mother is in. PHYSICAL EXAMINATION: VITAL SIGNS: The patient's blood pressure is 143/55, heart rate 77, and respiration 24. HEENT: She is not icteric. NECK: Supple. CHEST: Few crackles bilateral. HEART: S1 and S2. ABDOMEN: Soft. Bowel sounds present. EXTREMITIES: No edema. SKIN: No rash. LABORATORY DATA: Blood cultures and urine cultures are negative. White count is 15.9 today and hemoglobin 12. Sodium 141, potassium 4.4, and creatinine 0.84. MEDICATIONS: The patient, who is currently on Ventolin. She was on doxycycline, meropenem, and dexamethasone. IMPRESSION: Respiratory failure, getting worse, COVID-19, obesity, and diabetes mellitus. Unlikely to do a CTA, however, she was too unstable to do that now. Continue as above. We will increase her Lovenox dose. We will follow. MD [facility] /[id number]
--- NOTE | 2020-02-20 21:00 | NUR ---
PATIENT REMAINS IN PRONE POSITION, DENIES ANY DISCOMFORT, ABLE TO REPOSITION SELF NEEDED
[2020-02-20] MEDS: ATORVASTATIN 40 MG TAB PO SCH (21:39)
[2020-02-20] MEDS: INSULIN GLARGINE 100 UNITS/ML VIAL SQ SCH (21:40)
[2020-02-21] VITALS (25 sets, daily range): BP systolic 111–153; BP diastolic 53–67
[2020-02-21 05:54] LABS: BASOPHILS % 0.2 % (0.0-1.0); EOSINOPHILS % 0.1 % (0.0-6.0); HEMATOCRIT 38.7 % (34.2-44.1); HEMOGLOBIN 12.6 g/dL (12.0-16.0); LYMPHOCYTES % 7.6 % (18.0-39.1); MEAN CORPUSCULAR HGB CONC 32.6 g/dL (31-35); MONOCYTES # (AUTO) 0.3 (0.2-0.8); MONOCYTES % 2.2 % (4.4-11.3); NEUTROPHILS # (AUTO) 11.7 (2.1-6.9); NEUTROPHILS % 88.9 % (38.7-80.0); PLATELET COUNT 296 x10e3/uL (140-360); RED BLOOD COUNT 4.66 x10e6/uL (3.6-5.1); RED CELL DISTRIBUTION WIDTH 14.4 % (11.7-14.4)
[2020-02-21] MEDS: MEROPENEM 1GM 100 ML IV SCH ×3 (06:13→21:36)
--- NOTE | 2020-02-21 06:14 | NUR ---
ASSISTED PATIENT TO SUPINE POSITION FOR AM CHEST XRAY
[2020-02-21 06:19] LABS: ALANINE AMINOTRANSFERASE 22 IU/L (0-55); ALBUMIN 2.2 g/dL (3.5-5.0); ALBUMIN/GLOBULIN RATIO 0.5 (0.8-2.0); ALKALINE PHOSPHATASE 70 IU/L (40-150); BLOOD UREA NITROGEN 22 mg/dL (7-26); BUN/CREATININE RATIO 29 (6-25); CALCIUM 8.6 mg/dL (8.4-10.2); CARBON DIOXIDE 24 mmol/L (22-29); CHLORIDE 108 mmol/L (98-107); CREATININE, SERUM 0.75 mg/dL (0.57-1.11); EST GLOMERULAR FILTRATION RATE > 60 ML/MIN (60-); GLUCOSE 69 mg/dL (74-118); SODIUM 142 mmol/L (136-145)
--- NOTE | 2020-02-21 07:00 | NUR ---
Patient supine reported from night nurse chin skin tear /abrasion noted today.
[2020-02-21] MEDS: INSULIN LISPRO 100 UNIT/1 ML 3ML VIAL SQ SCH ×7 (07:30→20:28)
--- NOTE | 2020-02-21 08:07 | Diagnostic Imaging Report ---
EXAMINATION: CHEST SINGLE (PORTABLE) INDICATION: resp failure COMPARISON: Multiple prior chest x-rays including most recent 02/18/2020. FINDINGS: TUBES and LINES: None. LUNGS: Normal lung volumes. No significant interval change in multifocal interstitial or airspace opacities throughout both lungs. PLEURA: No pleural effusion or pneumothorax. HEART AND MEDIASTINUM: The cardiomediastinal silhouette is unremarkable. There are atherosclerotic calcifications within the aorta. BONES AND SOFT TISSUES: No acute osseous lesion. Soft tissues are unchanged. UPPER ABDOMEN: No free air under the diaphragm. IMPRESSION: No interval changes in multifocal interstitial and airspace opacities throughout both lungs which likely represents multifocal pneumonia with ARDS. Signed by: Alexander Reed MD on 02/21/2020 8:03 AM
[2020-02-21] MEDS: METOPROLOL SUCCINATE 50 MG TAB XL PO SCH ×2 (08:34→16:36)
[2020-02-21] MEDS: DEXAMETHASONE SOD PHOS INJ 4 MG/ML VIAL IV SCH (08:34)
[2020-02-21] MEDS: GUAIFENESIN 600 MG TAB PO SCH ×2 (08:34→16:36)
[2020-02-21] MEDS: VENLAFAXINE HCL 75 MG CAPCR PO SCH ×2 (08:34→16:36)
[2020-02-21] MEDS: BENZONATATE 100 MG CAP PO SCH ×3 (08:34→20:28)
[2020-02-21] MEDS: MEMANTINE 10 MG TAB PO SCH (08:34)
[2020-02-21] MEDS: ASCORBIC ACID 500 MG TAB PO SCH ×2 (08:35→16:37)
[2020-02-21] MEDS: DOXYCYCLINE HYCLATE TABLET 100 MG TAB PO SCH ×2 (08:35→16:37)
[2020-02-21] MEDS: ZINC SULFATE 50 MG CAP PO SCH (08:35)
[2020-02-21] MEDS: ENOXAPARIN INJ 80 MG/0.8 ML SYR SC SCH ×2 (08:35→20:28)
[2020-02-21] MEDS: ALBUTEROL SULFATE HFA 8GM INHALATION AEROSOL INH SCH ×3 (09:00→20:30)
--- NOTE | 2020-02-21 11:00 | NUR ---
While obtaining blood sugar patient states she haven't to talk to family today. I gave patient her cell phone and she called family
--- NOTE | 2020-02-21 12:33 | NUR ---
Patient face timing with family with her personal phone
--- NOTE | 2020-02-21 14:20 | NUR ---
Dr Weber at bedside update given see new orders and notes
--- NOTE | 2020-02-21 15:32 | Progress Note ---
DATE: SUBJECTIVE: The patient is still requiring Airvo at 50 L at 90%. She is in a supine position. PHYSICAL EXAMINATION: VITAL SIGNS: Blood pressure is 122/57, saturation is 100%, and the pulse is 55. HEENT: Shows no facial swelling or erythema. LYMPHATIC: Shows no submandibular, cervical, or supraclavicular adenopathy. CARDIAC: Reveals regular rate and rhythm with normal S1, S2. LUNGS: Auscultation of lungs reveals rhonchorous breath sounds bilaterally. There is no wheezing. ABDOMEN: Soft and nontender. There is no rebound or guarding. EXTREMITIES: Shows no leg edema or calf tenderness. There is no cyanosis or clubbing. SKIN: Shows no rashes. NEUROLOGICAL: Shows no focal abnormalities. ASSESSMENT AND PLAN: 1. Viral pneumonia and COVID-19 infection. 2. Chronic obstructive pulmonary disease. 3. Diabetes. PLAN: 1. Continue Airvo. 2. Continue antibiotics. 3. Complete dexamethasone. 4. Complete remdesivir. 5. Continue to monitor and control blood sugars. Leopoldo Weber MD [facility] /[id number]
[2020-02-21] MEDS: ATORVASTATIN 40 MG TAB PO SCH (20:28)
[2020-02-21] MEDS: INSULIN GLARGINE 100 UNITS/ML VIAL SQ SCH (20:50)
[2020-02-22] VITALS (27 sets, daily range): BP systolic 110–147; BP diastolic 49–96
[2020-02-22] MEDS: ALBUTEROL SULFATE HFA 8GM INHALATION AEROSOL INH SCH ×4 (01:00→19:35)
[2020-02-22] MEDS ORDERED: ROCURONIUM BROMIDE 250 ML IV ONE (02:39)
[2020-02-22 04:58] LABS: BASOPHILS % 0.2 % (0.0-1.0); EOSINOPHILS % 0.1 % (0.0-6.0); HEMATOCRIT 36.7 % (34.2-44.1); LYMPHOCYTES # (AUTO) 0.9 (1.0-3.2); MEAN CORPUSCULAR HGB CONC 32.7 g/dL (31-35); MEAN CORPUSCULAR VOLUME 82.5 fL (81-99); MONOCYTES # (AUTO) 0.4 (0.2-0.8); MONOCYTES % 3.4 % (4.4-11.3); NEUTROPHILS # (AUTO) 9.9 (2.1-6.9); NEUTROPHILS % 87.5 % (38.7-80.0); PLATELET COUNT 301 x10e3/uL (140-360); RED BLOOD COUNT 4.45 x10e6/uL (3.6-5.1); RED CELL DISTRIBUTION WIDTH 14.3 % (11.7-14.4)
[2020-02-22 05:19] LABS: ALANINE AMINOTRANSFERASE 23 IU/L (0-55); ALBUMIN/GLOBULIN RATIO 0.5 (0.8-2.0); ALKALINE PHOSPHATASE 73 IU/L (40-150); ANION GAP 14.9 mmol/L (8-16); BLOOD UREA NITROGEN 27 mg/dL (7-26); BUN/CREATININE RATIO 33 (6-25); CALCIUM 8.4 mg/dL (8.4-10.2); CARBON DIOXIDE 22 mmol/L (22-29); CHLORIDE 108 mmol/L (98-107); CREATININE, SERUM 0.81 mg/dL (0.57-1.11); EST GLOMERULAR FILTRATION RATE > 60 ML/MIN (60-); GLUCOSE 140 mg/dL (74-118); POTASSIUM 3.9 mmol/L (3.5-5.1); SODIUM 141 mmol/L (136-145)
[2020-02-22] MEDS: MEROPENEM 1GM 100 ML IV SCH ×3 (06:15→21:16)
[2020-02-22] MEDS: INSULIN LISPRO 100 UNIT/1 ML 3ML VIAL SQ SCH ×7 (07:30→21:15)
--- NOTE | 2020-02-22 08:33 | Diagnostic Imaging Report ---
TECHNIQUE: Frontal view of the chest. INDICATION: ^resp failure ^[id number] ^[id number] COMPARISON: Prior day. DISCUSSION: Limited evaluation due to portable technique. Lines and hardware: Overlying EKG leads are noted. Heart and mediastinum: Stable. Lungs and pleura: Low lung lines are noted. Allowing for differences in aeration, similar appearance of multifocal interstitial and airspace opacities. Negative for large effusion or pneumothorax. Soft tissues and bones: No acute abnormality. Stable cholecystectomy clips. IMPRESSION: Decreased lung volumes/aeration. Allowing for differences in aeration, similar appearance of multifocal interstitial and alveolar airspace opacities. Signed by: Lev Bailey MD on 02/22/2020 8:29 AM
[2020-02-22] MEDS: DEXAMETHASONE SOD PHOS INJ 4 MG/ML VIAL IV SCH (09:20)
[2020-02-22] MEDS: MEMANTINE 10 MG TAB PO SCH (09:27)
[2020-02-22] MEDS: METOPROLOL SUCCINATE 50 MG TAB XL PO SCH ×2 (09:29→17:32)
[2020-02-22] MEDS: BENZONATATE 100 MG CAP PO SCH ×3 (09:29→21:15)
[2020-02-22] MEDS: GUAIFENESIN 600 MG TAB PO SCH ×2 (09:43→17:31)
[2020-02-22] MEDS: DOXYCYCLINE HYCLATE TABLET 100 MG TAB PO SCH ×2 (09:43→17:32)
[2020-02-22] MEDS: VENLAFAXINE HCL 75 MG CAPCR PO SCH ×2 (09:43→17:31)
[2020-02-22] MEDS: ENOXAPARIN INJ 80 MG/0.8 ML SYR SC SCH ×2 (09:44→21:15)
--- NOTE | 2020-02-22 11:02 | Progress Note ---
DATE: SUBJECTIVE: The patient remains on Airvo at 50 L, 70% oxygen. She is in the supine position. PHYSICAL EXAMINATION: VITAL SIGNS: Blood pressure is 116/54 and pulse ox is 98%. She is on Airvo as mentioned above. HEENT: Shows no facial swelling or erythema. LYMPHATIC: Shows no submandibular, cervical, or supraclavicular adenopathy. CARDIAC: Reveals regular rate and rhythm with normal S1 and S2. LUNGS: Auscultation of lungs reveals rhonchorous breath sounds bilaterally. There is no wheezing. ABDOMEN: Soft and nontender. There is no rebound or guarding. EXTREMITIES: Show no leg edema or calf tenderness. There is no cyanosis or clubbing. SKIN: Shows no rashes. NEUROLOGICAL: Shows no focal abnormalities. LABORATORY DATA: White blood cell count is 11.3 and the hemoglobin is 12. The platelet count is 301. The BUN to creatinine ratio is 27 to 0.81 and the other electrolytes are within normal limits. The albumin is 2. IMPRESSION: 1. Viral pneumonia and COVID-19 infection. 2. Chronic obstructive pulmonary disease. 3. Diabetes. PLAN: 1. Continue Airvo. 2. Continue antibiotics. 3. Complete dexamethasone. 4. Complete remdesivir. 5. Physical therapy evaluation. 6. Speech therapy evaluation. Leopoldo Weber MD [facility] /[id number]
--- NOTE | 2020-02-22 11:18 | NUR ---
INFECTIOUS DISEASE PROGRESS NOTE DR. TATYANA COTTON HISTORY OF PRESENT ILLNESS: Pneumonia in this patient who is a 74-year-old who has history of obesity, history of hypertension, and diabetes. She has been sick for a couple of weeks. Her family did have COVID. The patient comes in because she is short of breath and for the last 2 weeks she has been having some sore throat and cough and now she is having shortness of breath. The patient was in the emergency room. She is to being evaluated and going to be admitted. I am asked to see her. Her chest x-ray showed diffuse interstitial alveolar airspace opacities suggestive of edema and/or pneumonia. PAST MEDICAL HISTORY: Diabetes mellitus and hypertension. REVIEW OF SYSTEMS: +Fatigue +debility Beside what is noted above, denies any. PHYSICAL EXAMINATION: GENERAL: She is currently alert, oriented VITAL SIGNS: Stable, currently afebrile. HEENT: She is not icteric. normocephalic NECK: Supple. no JVD CHEST: Crackles bilateral. symmetric expansion, on oxygen HEART: S1, S2. no s3, s4 ABDOMEN: Soft. Bowel sounds present. EXTREMITIES: No edema. moves all SKIN: No rash. no edema IMPRESSION: Atypical pneumonia COVID-19 community-acquired pneumonia T2DM PLAN s/p RMSV Goals of care d/w daughter, pt to remain full code at this time continue with tight glucose control continue with supportive care continues on high flow n/c guarded prognosis Fara Harrell MSN, TERMINAL SUPERINTENDENT, AGACNP- d/w Tatyana Cotton M.D
[2020-02-22] MEDS: ZINC SULFATE 50 MG CAP PO SCH (11:47)
[2020-02-22] MEDS: ASCORBIC ACID 500 MG TAB PO SCH ×2 (11:47→17:32)
--- NOTE | 2020-02-22 19:48 | Progress Note ---
DATE: 02/22/2020 Medicine Progress Note SUBJECTIVE: I am covering for Dr. Franklyn Smith. The patient was admitted for underlying COVID-19 pneumonia. She is currently in the ICU. She is on high-flow oxygen. She is a tachypneic occasionally. PHYSICAL EXAMINATION: VITAL SIGNS: Temperature is 98.2, pulse 62, respiratory rate is 25, blood pressure 139/58, and pulse ox 100% on nasal cannula, on FiO2 50%. GENERAL: Not in acute distress. Alert and oriented x3. Cooperative on examination. PULMONARY: Clear to auscultation bilaterally. No wheezing, no rales, no rhonchi, no crackles appreciated. CARDIOVASCULAR: Positive S1 and S2. No murmurs, rubs, or gallops appreciated. ABDOMEN: Soft, nondistended, and nontender to palpation. Bowel sounds present. MUSCULOSKELETAL: Unable to assess at this time. NEUROLOGIC: Unable to assess at this time. LABORATORY DATA: Show white count was 11, hemoglobin 12, hematocrit is 36.7, and platelets of 301. Chemistry; sodium 141, potassium 3.9, chloride 109, bicarb 22, anion gap of 14, BUN is 27, creatinine is 0.81, and glucose is 140. LFTs within normal range. Albumin was 2. MICROBIOLOGY: All cultures were found to be negative. IMAGING STUDIES: Chest x-ray this morning shows decreased lung volumes aeration, which is an aeration in similar appearance of multifocal interstitial alveolar airspace opacities. IMPRESSION: 1. COVID-19 pneumonia. 2. Acute respiratory failure secondary to #1. 3. Hypertension. 4. Baseline dementia. PLAN: At this time, continue with IV antibiotics, neb treatments, and IV steroids. The patient continues to be on vitamins as well. ID and Pulmonary are following. Endocrinology consulted for diabetic management. Lovenox for DVT prophylaxis. Continue same plan of care and monitor very closely. MD MARK Ty/MODL /[id number]
[2020-02-22] MEDS: ATORVASTATIN 40 MG TAB PO SCH (21:15)
[2020-02-22] MEDS: INSULIN GLARGINE 100 UNITS/ML VIAL SQ SCH (21:16)
[2020-02-23] VITALS (26 sets, daily range): BP systolic 97–140; BP diastolic 42–97
[2020-02-23 04:39] LABS: BASOPHILS % 0.1 % (0.0-1.0); EOSINOPHILS % 0.1 % (0.0-6.0); HEMATOCRIT 36.9 % (34.2-44.1); LYMPHOCYTES # (AUTO) 0.9 (1.0-3.2); LYMPHOCYTES % 6.3 % (18.0-39.1); MEAN CORPUSCULAR HEMOGLOBIN 26.7 pg (28-32); MEAN CORPUSCULAR HGB CONC 32.5 g/dL (31-35); MEAN CORPUSCULAR VOLUME 82.2 fL (81-99); MONOCYTES # (AUTO) 0.5 (0.2-0.8); MONOCYTES % 3.2 % (4.4-11.3); NEUTROPHILS % 89.4 % (38.7-80.0); PLATELET COUNT 279 x10e3/uL (140-360); RED BLOOD COUNT 4.49 x10e6/uL (3.6-5.1); RED CELL DISTRIBUTION WIDTH 14.1 % (11.7-14.4)
[2020-02-23 05:01] LABS: ALANINE AMINOTRANSFERASE 21 IU/L (0-55); ALBUMIN/GLOBULIN RATIO 0.5 (0.8-2.0); ALKALINE PHOSPHATASE 79 IU/L (40-150); ANION GAP 12.1 mmol/L (8-16); BLOOD UREA NITROGEN 27 mg/dL (7-26); BUN/CREATININE RATIO 38 (6-25); CALCIUM 8.3 mg/dL (8.4-10.2); CARBON DIOXIDE 25 mmol/L (22-29); CHLORIDE 107 mmol/L (98-107); CREATININE, SERUM 0.72 mg/dL (0.57-1.11); EST GLOMERULAR FILTRATION RATE > 60 ML/MIN (60-); GLUCOSE 82 mg/dL (74-118); POTASSIUM 4.1 mmol/L (3.5-5.1); SODIUM 140 mmol/L (136-145)
[2020-02-23] MEDS: MEROPENEM 1GM 100 ML IV SCH ×3 (05:30→21:15)
[2020-02-23] MEDS: ALBUTEROL SULFATE HFA 8GM INHALATION AEROSOL INH SCH ×3 (07:00→19:30)
[2020-02-23] MEDS: INSULIN LISPRO 100 UNIT/1 ML 3ML VIAL SQ SCH ×8 (07:25→20:21)
[2020-02-23] MEDS: GUAIFENESIN 600 MG TAB PO SCH ×2 (08:59→17:53)
[2020-02-23] MEDS: VENLAFAXINE HCL 75 MG CAPCR PO SCH ×2 (08:59→17:52)
[2020-02-23] MEDS: MEMANTINE 10 MG TAB PO SCH (09:00)
[2020-02-23] MEDS: BENZONATATE 100 MG CAP PO SCH ×3 (09:00→20:22)
[2020-02-23] MEDS: METOPROLOL SUCCINATE 50 MG TAB XL PO SCH ×2 (09:01→17:53)
[2020-02-23] MEDS: DOXYCYCLINE HYCLATE TABLET 100 MG TAB PO SCH ×2 (09:01→17:53)
[2020-02-23] MEDS: ASCORBIC ACID 500 MG TAB PO SCH ×2 (09:01→17:53)
[2020-02-23] MEDS: DEXAMETHASONE SOD PHOS INJ 4 MG/ML VIAL IV SCH (09:01)
[2020-02-23] MEDS: ENOXAPARIN INJ 80 MG/0.8 ML SYR SC SCH ×2 (09:01→20:22)
[2020-02-23] MEDS: ZINC SULFATE 50 MG CAP PO SCH (09:02)
--- NOTE | 2020-02-23 09:06 | Progress Note ---
DATE: SUBJECTIVE: The patient is still on Airvo. The patient is on 50 L and 70%. PHYSICAL EXAMINATION: VITAL SIGNS: Blood pressure is 141/70, saturation is 99% and respiratory rate is 17. HEENT: Shows no facial swelling or erythema. LYMPHATIC: Shows no submandibular, cervical, or supraclavicular adenopathy. CARDIAC: Reveals regular rate and rhythm with normal S1 and S2. LUNGS: Auscultation of lungs reveals rhonchorous breath sounds bilaterally. There is no wheezing. ABDOMEN: Soft and nontender. There is no rebound or guarding. EXTREMITIES: Shows no leg edema or calf tenderness. There is no cyanosis or clubbing. SKIN: Shows no rashes. NEUROLOGICAL: Shows no focal abnormalities. LABORATORY DATA: White blood cell count was 14.58 and hemoglobin is 12 and platelet count is 279. The BUN to creatinine ratio is normal. The other electrolytes are within normal limits. Albumin is 2.0. RADIOGRAPHIC DATA: Chest x-ray shows bilateral infiltrates. IMPRESSION: 1. Acute respiratory failure. 2. Viral pneumonia and COVID-19 infection. 3. Diabetes. PLAN: 1. Continue Airvo. 2. Continue current antibiotics. 3. Continue to monitor and control blood sugars. Leopoldo Weber MD [facility]/MODL /[id number]
--- NOTE | 2020-02-23 09:25 | NUR ---
SAUL ROSADO FROM [employer]UR[employer] [phone], CALL IF NEED ASSISTANCE WITH DISCHARGE PLANNING
[2020-02-23] MEDS: ACETAMINOPHEN 325 MG TAB PO PRN (10:15)
--- NOTE | 2020-02-23 18:09 | Progress Note ---
DATE: 02/23/2020 Medicine Progress Note SUBJECTIVE: The patient reportedly is doing well today with no complaints. She still desaturates with ambulation and movement. She is still requiring significant amount of oxygenation. She is on 50 L FiO2 of 70%. PHYSICAL EXAMINATION: VITAL SIGNS: Temperature is 98.2, pulse 62, respiratory rate is 24, blood pressure 121/53, and pulse ox 96%, 50 L of oxygen, FiO2 70%. GENERAL: Not in acute distress. Alert and oriented x3. Cooperative on examination. PULMONARY: Clear to auscultation bilaterally. No wheezing, no rales, no rhonchi, no crackles appreciated. CARDIOVASCULAR: Positive S1 and S2. No murmurs, rubs, or gallops appreciated. ABDOMEN: Soft, nondistended, and nontender to palpation. Bowel sounds present. MUSCULOSKELETAL: Strength is 5/5 throughout. LABORATORY DATA: Show white count 14.5, hemoglobin 12, hematocrit is 36.9, and platelets of 279. Chemistry reviewed, stable. Urinalysis noted. MICROBIOLOGY: Blood and urine cultures were negative. IMAGING STUDIES: Nothing new. IMPRESSION: 1. COVID-19 pneumonia. 2. Acute respiratory failure secondary to #1. 3. Hypertension. 4. Baseline dementia. PLAN: At this time, the patient maintains on oxygen 50 L, FiO2 70%. Continue with antibiotics, neb treatments, and steroids. Pulmonary Critical Care and ID are following. As for her insulin is being adjusted accordingly by Endocrinology. Lovenox for DVT prophylaxis. MD MARK Ty/MODL /[id number]
--- NOTE | 2020-02-23 20:11 | Diagnostic Imaging Report ---
EXAMINATION: CHEST SINGLE (PORTABLE) INDICATION: ^eval sq emphysema ^[id number] ^1901 COMPARISON: None FINDINGS: TUBES and LINES: None. LUNGS: No interval changes in diffuse interstitial and airspace opacities throughout both lungs. PLEURA: No pleural effusion or pneumothorax. HEART AND MEDIASTINUM: The cardiomediastinal silhouette is unchanged. There are atherosclerotic calcifications within the aorta. BONES AND SOFT TISSUES: No acute osseous lesion. Soft tissues are unchanged. Specifically no radiographic evidence of subcutaneous emphysema.. UPPER ABDOMEN: No free air under the diaphragm. IMPRESSION: 1. No radiographic evidence of subcutaneous emphysema. 2. No interval changes in multifocal interstitial and airspace opacities most compatible with multifocal pneumonia. Signed by: Alexander Reed MD on 02/23/2020 8:08 PM
[2020-02-23] MEDS: ATORVASTATIN 40 MG TAB PO SCH (20:22)
[2020-02-23] MEDS ORDERED: INSULIN GLARGINE 100 UNITS/ML VIAL SQ SCH (21:00)
[2020-02-24] VITALS (25 sets, daily range): BP systolic 96–143; BP diastolic 48–66
[2020-02-24] MEDS: ALBUTEROL SULFATE HFA 8GM INHALATION AEROSOL INH SCH ×4 (00:30→19:00)
[2020-02-24 04:41] LABS: BASOPHILS % 0.1 % (0.0-1.0); EOSINOPHILS % 0.3 % (0.0-6.0); HEMOGLOBIN 12.1 g/dL (12.0-16.0); LYMPHOCYTES % 8.6 % (18.0-39.1); MEAN CORPUSCULAR HEMOGLOBIN 27.3 pg (28-32); MEAN CORPUSCULAR HGB CONC 32.7 g/dL (31-35); MEAN CORPUSCULAR VOLUME 83.5 fL (81-99); MONOCYTES # (AUTO) 0.4 (0.2-0.8); NEUTROPHILS # (AUTO) 10.3 (2.1-6.9); NEUTROPHILS % 87.4 % (38.7-80.0); PLATELET COUNT 252 x10e3/uL (140-360); RED BLOOD COUNT 4.43 x10e6/uL (3.6-5.1); RED CELL DISTRIBUTION WIDTH 13.8 % (11.7-14.4)
[2020-02-24 05:02] LABS: ALANINE AMINOTRANSFERASE 22 IU/L (0-55); ALBUMIN/GLOBULIN RATIO 0.5 (0.8-2.0); ALKALINE PHOSPHATASE 82 IU/L (40-150); ANION GAP 12.1 mmol/L (8-16); BLOOD UREA NITROGEN 25 mg/dL (7-26); BUN/CREATININE RATIO 33 (6-25); CALCIUM 8.3 mg/dL (8.4-10.2); CARBON DIOXIDE 25 mmol/L (22-29); CHLORIDE 106 mmol/L (98-107); CREATININE, SERUM 0.75 mg/dL (0.57-1.11); EST GLOMERULAR FILTRATION RATE > 60 ML/MIN (60-); GLUCOSE 89 mg/dL (74-118); POTASSIUM 4.1 mmol/L (3.5-5.1); SODIUM 139 mmol/L (136-145)
[2020-02-24] MEDS: MEROPENEM 1GM 100 ML IV SCH ×3 (06:19→21:08)
[2020-02-24] MEDS: INSULIN LISPRO 100 UNIT/1 ML 3ML VIAL SQ SCH ×7 (07:30→21:07)
[2020-02-24] MEDS: GUAIFENESIN 600 MG TAB PO SCH ×2 (08:02→16:14)
[2020-02-24] MEDS: ZINC SULFATE 50 MG CAP PO SCH (08:02)
[2020-02-24] MEDS: ENOXAPARIN INJ 80 MG/0.8 ML SYR SC SCH ×2 (08:02→21:07)
[2020-02-24] MEDS: DOXYCYCLINE HYCLATE TABLET 100 MG TAB PO SCH ×2 (08:02→16:14)
[2020-02-24] MEDS: BENZONATATE 100 MG CAP PO SCH ×3 (08:02→21:07)
[2020-02-24] MEDS: DEXAMETHASONE SOD PHOS INJ 4 MG/ML VIAL IV SCH (08:02)
[2020-02-24] MEDS: MEMANTINE 10 MG TAB PO SCH (08:02)
[2020-02-24] MEDS: VENLAFAXINE HCL 75 MG CAPCR PO SCH ×2 (08:02→16:14)
[2020-02-24] MEDS: ASCORBIC ACID 500 MG TAB PO SCH ×2 (08:02→16:15)
--- NOTE | 2020-02-24 08:29 | Diagnostic Imaging Report ---
EXAMINATION: CHEST SINGLE (PORTABLE) INDICATION: ^resp failure ^[id number] ^0509 COMPARISON: Radiograph from yesterday FINDINGS: Unchanged cardiomediastinal silhouette with obscuration of the left heart border by adjacent airspace disease. Diffuse interstitial and patchy opacities throughout both lungs, not significantly changed. No pleural effusion. No pneumothorax. IMPRESSION: Unchanged exam. Diffuse bilateral pneumonia. Signed by: Franklyn Wynn MD on 02/24/2020 8:25 AM
[2020-02-24] MEDS: METOPROLOL SUCCINATE 50 MG TAB XL PO SCH ×2 (09:00→16:14)
--- NOTE | 2020-02-24 09:18 | Diagnostic Imaging Report ---
Modified Barium Swallow: Clinical History: Dysphagia Comparison: None Fluoro time in minutes: 1 minute and 37 seconds Radiation dose: 2.29 mGy air Kerma. Number of images: Multiple Report: The patient ingested various consistencies of barium with a speech pathologist in attendance. A full report from speech pathology will follow. Impression: Fluoroscopy service provided to speech pathology as above. Signed by: Lincoln Alcantara MD on 02/24/2020 9:15 AM
--- NOTE | 2020-02-24 11:53 | Progress Note ---
DATE: SUBJECTIVE: The patient is afebrile. She remains in the prone position intermittently. PHYSICAL EXAMINATION: VITAL SIGNS: The blood pressure is 115/50 and the saturation is 90%. She is on Airvo at 50 L and her pulse is 57. HEENT: Shows no facial swelling or erythema. LYMPHATIC: Shows no submandibular, cervical, or supraclavicular adenopathy. CARDIAC: Reveals regular rate and rhythm with normal S1, S2. LUNGS: Auscultation of lungs reveals rhonchorous breath sounds bilaterally. There is no wheezing. ABDOMEN: Soft, nontender. There is no rebound or guarding. EXTREMITIES: Shows some leg edema or calf tenderness. There is no cyanosis or clubbing. SKIN: Shows no rashes. NEUROLOGICAL: Shows no focal abnormalities. LABORATORY DATA: BUN to creatinine ratio is 25 to 0.75. The electrolytes within normal limits. The white blood count is 11.7, hemoglobin is 12.1, and the platelet count is 252. RADIOGRAPHIC DATA: Chest x-ray shows bilateral infiltrates. IMPRESSION: 1. Acute respiratory failure. 2. Viral pneumonia and coronavirus disease -19 infection. 3. Diabetes. PLAN: 1. Continue Airvo. 2. Continue current antibiotics. 3. Continue to monitor and control blood sugars. Leopoldo Weber MD [facility]/MODL /[id number]
--- NOTE | 2020-02-24 15:57 | NUR ---
Nutrition Intervention Note RD Recommendation(s) for Physician: -Continue current diet as ordered -Continue Glucerna nutrition supplement shakes with meals Plan of Care: RD following, monitoring for tolerance and adequacy, oral supplement recommendation Nutrition reason for involvement: follow up RD Assessment 02/23: Follow up. Chart reviewed. Pt has been in the prone position intermittently as noted in chart. Pt is on Airvo. It is recorded that pt consumed a couple of bites of oatmeal and Glucerna shake yesterday. Speech therapy evaluated pt and recommended a mechanical soft/chopped diet. Recommend to continue Glucerna nutrition supplements with meals and encourage PO intake. Will continue to monitor. (02/17) Pt is a 74 year old female admitted with pneumonia due to COVID-19. Unable to enter room due to isolation precautions. RD called pts room phone, but she did not answer. Spoke to RN who reported pt ate about 50% of her lunch and only drink a nutrition shake for breakfast this morning since pt is short of breath. Pts last recorded weight was 180 lbs in February 2014 per weight history. Pt currently has a weight of 166 lbs. Recommend to continue Glucerna nutrition supplements with meals and encourage PO intake. Will continue to monitor. Principal Problems/Diagnoses: pneumonia due to COVID-19. PMH: Hypertension, diabetes, mild dementia, and COPD. GI: soft/non-tender/round abdomen, last recorded BM 02/17 x 2 Skin: face wound Labs: 02/23: Na 139, K 4.1, BUN 25, Cr 0.75, Glu 89, ca 8.3 (02/17) Na 142, K 3.6, BUN 29, Cr 0.80, Glu 96, Ca 8.1 Meds: antibiotic, insulin, dexmethasone, zinc sulfate, vitamin C, metoprolol, insulin, zofran Ht: 61 in Wt: 160 lbs BMI: 30.2 kg/m2 IBW: 105 lbs Malnutrition Evaluation (02/24/20). Unable to fully assess due to isolation precaution restrictions. Will re-evaluate at follow-up as appropriate. Energy intake: <75% of estimated energy requirements for >7 days Weight loss: unable to assess at this time Fat loss: unable to evaluate Muscle loss: unable to evaluate Supporting Evidence: Fluid accumulation: unable to evaluate Functional Status: not assessed Nutrition Prescription (Diet Order): 1800 ADA, mechanical soft Estimated Nutritional Needs: [id number] calories/day (22-25 kcal/kg IBW) 72-95 g protein/day (1.5-2 g pro/kg IBW) Diet Adequacy: Not meeting calorie needs, Not meeting protein needs Tolerance: fair tolerance of PO diet per documentation Diet Education Needs Assessment: Diet education not indicated Nutrition Care Level: low Nutrition Diagnosis: Inadequate energy intake related to decreased ability to consume sufficient energy as evidenced by insufficient intake from diet compared to needs. Goal: Patient will meet 75-100% of estimated needs by follow up Progress: goal not met Interventions: -carbohydrate and texture modified diet, Commercial beverage, Collaboration with other providers Monitoring/Evaluation: -Total energy intake, Total protein intake, Modified diet, Liquid supplement, Weight change Signed: Camryn Staley RD, LD
--- NOTE | 2020-02-24 18:19 | NUR ---
Dr. Courtney Weber gave orders for physical therapy consult. Patient's family brought patient headphones, tablet, pictures and fake stearns. All items given to the patient. Patient had an episode of shortness of breath without desaturation noted, non rebreather mask placed over AIRVO. Patient stated relief from SOB with non rebreather mask. Will continue to monitor.
--- NOTE | 2020-02-24 18:55 | Progress Note ---
DATE: 02/24/2020 Medicine Progress Note SUBJECTIVE: The patient is doing well today. She is still on FiO2 of about 70%. She is on non-rebreather. She is comfortable. She is eating much better today compared to yesterday. PHYSICAL EXAMINATION: VITAL SIGNS: Temperature was 97.9, pulse 60, respiratory rate 25, blood pressure 126/58, pulse ox 97%. She is on 50% FiO2. GENERAL: In no acute distress, alert and oriented x3. Cooperative on examination. PULMONARY: Clear to auscultation bilaterally. No wheezing, rales, or rhonchi. Has a non-rebreather. CARDIOVASCULAR: Positive S1, S2. No murmurs, rubs, or gallops. ABDOMEN: Soft, nontender, nondistended to palpation. Bowel sounds present. MUSCULOSKELETAL: Currently very generalized weakness, unable to assess fully. She is very weak. NEUROLOGICAL: Alert and oriented x3. LABORATORY DATA: Labs show white count was 11, hemoglobin 12, hematocrit 37, and platelets of 252. Chemistry; sodium 139, potassium 4.1, chloride 106, bicarb 25, anion gap of 12, BUN is 25, creatinine 0.75, and glucose is 89. LFTs within normal range. MICROBIOLOGY: Blood and urine cultures were no growth. IMAGING STUDIES: Chest x-ray this morning showed unchanged diffuse bilateral pneumonia. IMPRESSION: 1. Coronavirus disease-19 pneumonia with underlying respiratory failure. 2. Hypertension. 3. Baseline dementia. 4. Generalized weakness and fatigue. PLAN: At this time, continue with non-rebreather and high-flow oxygen. Continue with antibiotics, neb treatments, and steroids. Pulmonary Critical Care and ID are following closely. Insulin is being adjusted by Endocrinology. Lovenox for DVT prophylaxis. MD MARK Ty/MODL /[id number]
--- NOTE | 2020-02-24 19:50 | Progress Note ---
DATE: SUBJECTIVE: Ms. Paulson remains in intensive care unit in a prone position intermittently, but she seems to be a little bit better. Her O2 saturation 90% on Airvo 50 with 50 L. PHYSICAL EXAMINATION: GENERAL: Currently alert. VITAL SIGNS: Stable. HEENT: She is not icteric. NECK: Supple. CHEST: Crackles. HEART: S1 and S2. ABDOMEN: Soft. Bowel sounds present. EXTREMITIES: No edema. IMPRESSION: COVID-19 and respiratory failure. The patient is slowly getting better. Diabetes mellitus. However, her prognosis remains guarded. She is currently on meropenem and doxycycline. White count is down. We will finish 5 days of current choice of antibiotic and then reassess. MD MIL[facility]/MODL /[id number]
[2020-02-24] MEDS ORDERED: INSULIN GLARGINE 100 UNITS/ML VIAL SQ SCH (21:00)
[2020-02-24] MEDS: ATORVASTATIN 40 MG TAB PO SCH (21:07)
[2020-02-25] VITALS (25 sets, daily range): BP systolic 106–147; BP diastolic 45–83
[2020-02-25] MEDS: ALBUTEROL SULFATE HFA 8GM INHALATION AEROSOL INH SCH ×4 (01:00→19:45)
[2020-02-25 02:57] LABS: BASOPHILS % 0.2 % (0.0-1.0); EOSINOPHILS # (AUTO) 0.1 (0.0-0.4); EOSINOPHILS % 0.5 % (0.0-6.0); HEMATOCRIT 36.4 % (34.2-44.1); HEMOGLOBIN 11.8 g/dL (12.0-16.0); LYMPHOCYTES # (AUTO) 1.2 (1.0-3.2); LYMPHOCYTES % 8.7 % (18.0-39.1); MEAN CORPUSCULAR HEMOGLOBIN 27.1 pg (28-32); MEAN CORPUSCULAR HGB CONC 32.4 g/dL (31-35); MEAN CORPUSCULAR VOLUME 83.7 fL (81-99); MONOCYTES # (AUTO) 0.4 (0.2-0.8); MONOCYTES % 2.9 % (4.4-11.3); NEUTROPHILS # (AUTO) 11.9 (2.1-6.9); PLATELET COUNT 206 x10e3/uL (140-360); RED BLOOD COUNT 4.35 x10e6/uL (3.6-5.1); RED CELL DISTRIBUTION WIDTH 14.1 % (11.7-14.4)
[2020-02-25 03:17] LABS: ALANINE AMINOTRANSFERASE 29 IU/L (0-55); ALBUMIN 1.9 g/dL (3.5-5.0); ALBUMIN/GLOBULIN RATIO 0.4 (0.8-2.0); ALKALINE PHOSPHATASE 79 IU/L (40-150); ANION GAP 12.2 mmol/L (8-16); BLOOD UREA NITROGEN 24 mg/dL (7-26); BUN/CREATININE RATIO 34 (6-25); CALCIUM 8.3 mg/dL (8.4-10.2); CARBON DIOXIDE 24 mmol/L (22-29); CHLORIDE 107 mmol/L (98-107); CREATININE, SERUM 0.71 mg/dL (0.57-1.11); EST GLOMERULAR FILTRATION RATE > 60 ML/MIN (60-); GLUCOSE 79 mg/dL (74-118); POTASSIUM 4.2 mmol/L (3.5-5.1); SODIUM 139 mmol/L (136-145)
[2020-02-25] MEDS: MEROPENEM 1GM 100 ML IV SCH ×3 (05:11→21:30)
[2020-02-25] MEDS: INSULIN LISPRO 100 UNIT/1 ML 3ML VIAL SQ SCH ×7 (07:23→21:24)
[2020-02-25] MEDS: ENOXAPARIN INJ 80 MG/0.8 ML SYR SC SCH ×2 (08:37→21:20)
[2020-02-25] MEDS: MEMANTINE 10 MG TAB PO SCH (08:37)
[2020-02-25] MEDS: ZINC SULFATE 50 MG CAP PO SCH (08:37)
[2020-02-25] MEDS: GUAIFENESIN 600 MG TAB PO SCH ×2 (08:37→16:41)
[2020-02-25] MEDS: ASCORBIC ACID 500 MG TAB PO SCH ×2 (08:37→16:42)
[2020-02-25] MEDS: DEXAMETHASONE SOD PHOS INJ 4 MG/ML VIAL IV SCH (08:37)
[2020-02-25] MEDS: DOXYCYCLINE HYCLATE TABLET 100 MG TAB PO SCH ×2 (08:37→16:41)
[2020-02-25] MEDS: VENLAFAXINE HCL 75 MG CAPCR PO SCH ×2 (08:37→16:41)
[2020-02-25] MEDS: BENZONATATE 100 MG CAP PO SCH ×3 (08:37→21:17)
--- NOTE | 2020-02-25 08:40 | Diagnostic Imaging Report ---
TECHNIQUE: Frontal view of the chest. INDICATION: ^resp failure ^[id number] ^0553 COMPARISON: Prior day. DISCUSSION: Limited evaluation due to portable technique. Lines and hardware: Overlying EKG leads are noted. Heart and mediastinum: Stable. Lungs and pleura: Interval worsening of bilateral interstitial and patchy airspace opacities. Negative for new large effusion or pneumothorax. Soft tissues and bones: No acute abnormality. IMPRESSION: Interval worsening of bilateral pneumonia. Signed by: Lev Bailey MD on 02/25/2020 8:36 AM
[2020-02-25] MEDS: METOPROLOL SUCCINATE 50 MG TAB XL PO SCH ×2 (09:00→16:41)
--- NOTE | 2020-02-25 09:37 | Progress Note ---
DATE: SUBJECTIVE: The patient is afebrile. She is on Airvo as well as a non-rebreather. She has been having desaturations. PHYSICAL EXAMINATION: VITAL SIGNS: Blood pressure is 113/70, saturations 95% on 50 L with 100%. HEENT: Shows no facial swelling or erythema. LYMPHATIC: Shows no submandibular, cervical, or supraclavicular adenopathy. CARDIAC: Reveals a regular rate and rhythm with normal S1, S2. LUNGS: Auscultation of lungs reveals crackles and rhonchi bilaterally. There is no wheezing. ABDOMEN: Soft and nontender. There is no rebound or guarding. EXTREMITIES: Shows no leg edema or calf tenderness. There is no cyanosis or clubbing. SKIN: Shows no rashes. NEUROLOGICAL: Shows no focal abnormalities. LABORATORY DATA: White blood cell count is 15.6, hemoglobin is 11.8, and the platelet count is 206. BUN to creatinine ratio is normal. The other electrolytes are within normal limits. Albumin is 1.9. IMPRESSION: 1. Acute respiratory failure. 2. Viral pneumonia and COVID-19 infection. 3. Diabetes. PLAN: 1. Continue Airvo. 2. Placed in prone position. 3. Continue current antibiotics. 4. Continue to monitor and control blood sugars. Leopoldo Weber MD [facility]/MODL /[id number]
[2020-02-25] MEDS ORDERED: SODIUM CHLORIDE 0.45% 500 ML IV ONE (10:00)
[2020-02-25] MEDS: FLUCONAZOLE 200 MG/100 ML 100 ML IV SCH (10:56)
[2020-02-25] MEDS ORDERED: SODIUM CHLORIDE/ALOE VERA 14.1GM NASAL GEL PRN (11:15)
--- NOTE | 2020-02-25 11:58 | Progress Note ---
DATE: 02/25/2020 MD ADRIANA Henry/AL /[id number]
--- NOTE | 2020-02-25 12:50 | Diagnostic Imaging Report ---
EXAMINATION: CHEST XRAY LINE PLACEMENT INDICATION: ^picc. COMPARISON: Earlier today FINDINGS: AP view TUBES and LINES: Left arm PICC tip terminates at the cavoatrial junction. LUNGS: Lungs are not well inflated. Multifocal opacities throughout the bilateral lungs are not significant change. PLEURA: No pleural effusion or pneumothorax. HEART AND MEDIASTINUM: The cardiomediastinal silhouette is stable. BONES AND SOFT TISSUES: No acute osseous lesion. Soft tissues are unremarkable. UPPER ABDOMEN: No free air under the diaphragm. There are cholecystectomy clips. IMPRESSION: Left arm PICC tip terminates at the cavoatrial junction. Unchanged multifocal consolidation. Signed by: Burt Yeboah MD on 02/25/2020 12:47 PM
[2020-02-25] MEDS ORDERED: SALINE 0.65% NAS SOLN 1 SPRAY BTL PRN (13:00)
--- NOTE | 2020-02-25 13:34 | Progress Note ---
DATE: 02/25/2020 Medicine Progress Note SUBJECTIVE: Today, the patient is in worse oxygenation requirement. Now, she is in a prone position. Her oxygen requirement now is at 100%. She is saturating very low in the 80s according to the nursing staff. PHYSICAL EXAMINATION: VITAL SIGNS: Temperature is 99, pulse 59, respiratory rate is 27, blood pressure 113/69, and pulse ox 85%. She is on non-rebreather 100%. She is in a prone position. GENERAL: Not in acute distress. Alert and oriented x3. PULMONARY: She is on 100% FiO2. She is on non-rebreather and prone position. No crackles, no rhonchi appreciated. CARDIOVASCULAR: Positive S1 and S2. No murmurs, rubs, or gallops appreciated. ABDOMEN: Soft, nondistended, and nontender to palpation. Bowel sounds present. MUSCULOSKELETAL: She is very weak on examination. NEUROLOGIC: Alert and oriented x3. LABORATORY DATA: Show white count 13, hemoglobin 11, hematocrit is 36, and platelets of 206. Chemistry; sodium 139, potassium 4.2, chloride 107, bicarb 24, anion gap of 12, BUN is 24, creatinine is 0.71, glucose is 79, and calcium is 8.3. LFTs within normal range. Albumin was 1.9. MICROBIOLOGY: All cultures were negative. IMAGING STUDIES: Chest x-ray this morning shows worsening bilateral pneumonia. IMPRESSION: 1. COVID-19 pneumonia with underlying respiratory failure. 2. Hypertension. 3. Baseline dementia. 4. Generalized weakness with fatigue. PLAN: At this time, she continues to be on high-flow and non-rebreather 100% according to the nursing staff. She is currently on prone position, which we will continue. Continue with antibiotics, neb treatments, and steroids. Pulmonary Critical Care and ID are following. Endocrinology is managing the insulin. She is on Lovenox for DVT prophylaxis. We will monitor very closely in the ICU. Follow with the rest of the consultants recommendations. MD MARK Ty/MODL /[id number]
--- NOTE | 2020-02-25 18:40 | NUR ---
Patient encouraged to lay in prone position this morning. Dr. Courtney french aware of low oxygen saturations and white discoloration on tongue. Orders given for picc line, IVF and Diflucan. Patient gave verbal consent and daughter gave consent as well for procedure, consent witnessed by Ruth BLANCO and placed in chart. L Picc line placed and orders given to use. Patient given a bath and weaned to 80% fio2 on airvo. Wound care done to chin. Patient does not appear to be in any distress at this time.
[2020-02-25] MEDS: ATORVASTATIN 40 MG TAB PO SCH (21:17)
[2020-02-25] MEDS: INSULIN GLARGINE 100 UNITS/ML VIAL SQ SCH (21:25)
[2020-02-26] VITALS (24 sets, daily range): BP systolic 86–147; BP diastolic 41–87
[2020-02-26] MEDS: ALBUTEROL SULFATE HFA 8GM INHALATION AEROSOL INH SCH ×4 (01:00→19:37)
[2020-02-26] MEDS: MEROPENEM 1GM 100 ML IV SCH ×2 (06:00→13:07)
[2020-02-26 06:25] LABS: BASOPHILS % 0.2 % (0.0-1.0); EOSINOPHILS % 0.2 % (0.0-6.0); HEMATOCRIT 36.9 % (34.2-44.1); LYMPHOCYTES # (AUTO) 1.2 (1.0-3.2); LYMPHOCYTES % 6.8 % (18.0-39.1); MEAN CORPUSCULAR HEMOGLOBIN 27.2 pg (28-32); MEAN CORPUSCULAR HGB CONC 32.5 g/dL (31-35); MEAN CORPUSCULAR VOLUME 83.7 fL (81-99); MONOCYTES # (AUTO) 0.5 (0.2-0.8); MONOCYTES % 2.9 % (4.4-11.3); NEUTROPHILS # (AUTO) 15.8 (2.1-6.9); NEUTROPHILS % 89.3 % (38.7-80.0); PLATELET COUNT 199 x10e3/uL (140-360); RED BLOOD COUNT 4.41 x10e6/uL (3.6-5.1); RED CELL DISTRIBUTION WIDTH 14.2 % (11.7-14.4)
[2020-02-26 06:48] LABS: ALANINE AMINOTRANSFERASE 37 IU/L (0-55); ALBUMIN 1.9 g/dL (3.5-5.0); ALBUMIN/GLOBULIN RATIO 0.4 (0.8-2.0); ALKALINE PHOSPHATASE 91 IU/L (40-150); ANION GAP 14.7 mmol/L (8-16); BLOOD UREA NITROGEN 23 mg/dL (7-26); BUN/CREATININE RATIO 34 (6-25); CALCIUM 8.2 mg/dL (8.4-10.2); CARBON DIOXIDE 25 mmol/L (22-29); CHLORIDE 103 mmol/L (98-107); CREATININE, SERUM 0.67 mg/dL (0.57-1.11); EST GLOMERULAR FILTRATION RATE > 60 ML/MIN (60-); GLUCOSE 88 mg/dL (74-118); POTASSIUM 4.7 mmol/L (3.5-5.1); SODIUM 138 mmol/L (136-145)
[2020-02-26] MEDS: INSULIN LISPRO 100 UNIT/1 ML 3ML VIAL SQ SCH ×7 (07:30→21:58)
--- NOTE | 2020-02-26 07:47 | Progress Note ---
DATE: SUBJECTIVE: The patient is afebrile. She is currently on Airvo at 60 L with 80%. She was in the prone position yesterday, but is now supine. PHYSICAL EXAMINATION: VITAL SIGNS: The blood pressure is 137/58, saturation is 100% on Airvo. The respiratory rate is 22 and the pulse is 62. HEENT: Shows no facial swelling or erythema. LYMPHATIC: Shows no submandibular, cervical, or supraclavicular adenopathy. CARDIAC: Reveals regular rate and rhythm with normal S1 and S2. LUNGS: Auscultation of lungs reveals crackles and rhonchi bilaterally. There is no wheezing. ABDOMEN: Soft and nontender. There is no rebound or guarding. EXTREMITIES: Shows no leg edema or calf tenderness. LABORATORY DATA: White blood cell count is 17.67, hemoglobin is 12 and the platelet count is 199. The BUN to creatinine ratio is normal. The other electrolytes are within normal limits and the albumin is 1.8. IMPRESSION: 1. Acute respiratory failure. 2. Viral pneumonia and COVID-19 infection. 3. Diabetes. PLAN: 1. Continue Airvo. 2. Use prone position as tolerated. 3. Complete antibiotics. 4. Continue to monitor and control of blood sugars. 5. DVT prophylaxis. Leopoldo Weber MD [facility]/MIGUELL /[id number]
[2020-02-26] MEDS: METOPROLOL SUCCINATE 50 MG TAB XL PO SCH ×2 (09:00→17:00)
[2020-02-26] MEDS: BENZONATATE 100 MG CAP PO SCH ×4 (09:09→20:46)
[2020-02-26] MEDS: MEMANTINE 10 MG TAB PO SCH (09:09)
[2020-02-26] MEDS: GUAIFENESIN 600 MG TAB PO SCH ×2 (09:09→18:02)
[2020-02-26] MEDS: VENLAFAXINE HCL 75 MG CAPCR PO SCH ×2 (09:09→18:01)
[2020-02-26] MEDS: DOXYCYCLINE HYCLATE TABLET 100 MG TAB PO SCH (09:31)
[2020-02-26] MEDS: ENOXAPARIN INJ 80 MG/0.8 ML SYR SC SCH ×2 (09:31→20:25)
[2020-02-26] MEDS: ASCORBIC ACID 500 MG TAB PO SCH ×2 (09:31→18:03)
[2020-02-26] MEDS: ZINC SULFATE 50 MG CAP PO SCH (09:31)
[2020-02-26] MEDS: BACITRACIN ZINC 15 GM OINT TOP SCH (09:31)
[2020-02-26] MEDS: FLUCONAZOLE 200 MG/100 ML 100 ML IV SCH (09:32)
--- NOTE | 2020-02-26 13:23 | Progress Note ---
DATE: 02/26/2020 Medicine Progress Note SUBJECTIVE: The patient is currently still on significant amount of oxygenation. She is very weak. She is not eating much. Reviewed plan of care with the daughter, the patient's daughter's name is Ins. Reviewed plan of care with her. Initiated on IV PPN. PHYSICAL EXAMINATION: VITAL SIGNS: Temperature is 97.6, pulse 66, respiratory rate 26, blood pressure 104/54, pulse ox 97%. She is on high-flow oxygen. FiO2 of 95%, 60 L. GENERAL: Not in acute distress. Alert and oriented x3. PULMONARY: On high-flow oxygenation. Some fine crackles appreciated. CARDIOVASCULAR: Positive S1 and S2. No murmurs, rubs, or gallops. ABDOMEN: Soft and nontender to palpation. Bowel sounds present. MUSCULOSKELETAL: She is very weak on examination. NEUROLOGICAL: Alert and oriented x3. LABORATORY DATA: Show white count was 17, hemoglobin 12, hematocrit 36.9, platelets of 199. Coagulation, PT 12, INR 0.9, PTT 32. Chemistry, sodium 138, potassium 4.7, chloride 103, bicarb 25, anion gap of 14, BUN is 23, creatinine 0.67, glucose is 88, calcium is 8.2. LFTs within normal range. Albumin was 1.9. MICROBIOLOGY: Blood and urine cultures no growth. IMAGING STUDIES: Chest x-ray, worsening of the bilateral pneumonia. IMPRESSION: 1. Coronavirus disease - 19 pneumonia with underlying respiratory failure. 2. Hypertension. 3. Baseline dementia. 4. Generalized weakness and fatigue. 5. Moderate protein-calorie malnutrition. PLAN: At this time, we will continue with high-flow oxygen as well as non-rebreather for now. She has already completed all her steroid treatments. Her white count is still slightly elevated, which we will defer to ID. She is on antibiotics and antifungal therapy as well as neb treatments. Blood pressure seems to be stable. I did initiate IV PPN for nutrition added or Magce as well to stimulate her appetite. Overall, prognosis seems to be very guarded. She is very ill and sick. She is in the ICU. I discussed the plan of care with the daughter by phone. I reviewed the plan of care and reviewed imaging and lab findings. At this time, I discussed with her that her mom is very sick and ill and she is requiring more significant oxygenation more than before and our goal is to monitor her very closely in the ICU. She verbalized understanding and agrees to plan of care. I discussed the plan of care with a nurse. MD MARK Ty/AL /[id number]
--- NOTE | 2020-02-26 14:32 | Diagnostic Imaging Report ---
OR Fluoroscopy: IMPRESSION: Fluoroscopy service provided in the OR. Interpretation not requested. Signed by: Lincoln Alcantara MD on 02/26/2020 2:29 PM
--- NOTE | 2020-02-26 15:19 | Progress Note ---
DATE: SUBJECTIVE: Ms. Lopez is in Intensive Care Unit, extremely weak. The patient on Airvo at 60L with 80%. She is in prone position now. I called her daughter. She is aware of her very guarded to poor prognosis, but keeps doing everything we can. The patient is currently just sleeping. OBJECTIVE: VITALS: Stable, afebrile. HEENT: She is not icteric. NECK: Supple. CHEST: Poor rhonchi bilateral. HEART: S1, S2. ABDOMEN: Soft. EXTREMITIES: No edema. LABORATORY DATA: Reviewed. She has a white count 17.6 today, hemoglobin 12. Sodium 138, potassium 4.7, creatinine 0.67. The patient was currently on meropenem, which was started on the 14 and fluconazole as well as doxycycline. IMPRESSION: Respiratory failure, shortness of breath, concerned about leukocytosis. She has been on antibiotic with improvement. I want to discontinue it and continue supportive care. Discussed with the daughter, she may end up on a ventilator if she continued to get weaker and weaker. She understands. We will follow. MD MILAGRO Sunshine/MODL /[id number]
[2020-02-26] MEDS: MEGACE 400MG/ 10ML CUP PO SCH (15:59)
[2020-02-26] MEDS ORDERED: DEXMEDETOMIDINE 200MCG/NS 50ML 50 ML IV PRN (18:15)
[2020-02-26] MEDS ORDERED: METHYLPREDNISOLONE SOD SUCC 125 MG/2ML VIAL IV ONE (19:45)
[2020-02-26] MEDS ORDERED: PERIPHERAL TPN FORMULA 1 BAG IV SCH (20:00)
[2020-02-26] MEDS: ATORVASTATIN 40 MG TAB PO SCH ×3 (20:27→21:00)
[2020-02-26] MEDS ORDERED: FUROSEMIDE INJ 10 MG/ML 4 ML VIAL ONE (20:30)
--- NOTE | 2020-02-26 20:30 | Progress Note ---
DATE: 02/26/2020 Pulmonary Medicine/Nuclear Medicine Tech Progress Note SUBJECTIVE: Multiple episodes of cough today. Regarding patient marginal oxygenation, 60 L/minute oxygen flow, 90% FiO2, which is escalated on Airvo. Oxygen set up. The patient is intermittently prone with desaturations during these episodes. The patient with some anxiety/agitation and therefore, probable escalations for behavior control may be needed. in on-call repetitively to see her for emergent issues. REVIEW OF SYSTEMS: Cannot get right now due to need for social distancing. LABORATORY DATA: Today's labs are reviewed including 17.6 white count. IMPRESSION AND PLAN: 1. Acute hypoxemic respiratory failure, on advanced oxygen salvage. 2. COVID pneumonitis. 3. Agitation/delirium. 4. Diabetes. 5. Hypertension. 6. Possible underlying chronic obstructive pulmonary disease. H and P suggests the patient does not smoke. Followup closely. Serial evaluations. Precedex if needed with heart rate cautions. Else we will consider Haldol or Pramoddon. Continue advanced oxygen salvage. Intubate if needed. Manpreet Oliver MD GMMateo/MODL /[id number]
[2020-02-26] MEDS ORDERED: FUROSEMIDE INJ 10 MG/ML 4 ML VIAL IV ONE (21:00)
[2020-02-26] MEDS: INSULIN GLARGINE 100 UNITS/ML VIAL SQ SCH (21:58)
[2020-02-26 23:12] LABS: ABG HCO3 24 mmol/L (22-26); ABG PCO2 31 mmHg (35-45); ABG PH 7.51 (7.35-7.45); ABG PO2 50 mmHg (80-105); ABG TCO2 25
[2020-02-27] VITALS (27 sets, daily range): BP systolic 79–203; BP diastolic 42–100
[2020-02-27 06:17] LABS: BASOPHILS % 0.1 % (0.0-1.0); HEMATOCRIT 38.2 % (34.2-44.1); HEMOGLOBIN 12.5 g/dL (12.0-16.0); LYMPHOCYTES # (AUTO) 0.2 (1.0-3.2); LYMPHOCYTES % 1.6 % (18.0-39.1); MEAN CORPUSCULAR HEMOGLOBIN 27.4 pg (28-32); MEAN CORPUSCULAR HGB CONC 32.7 g/dL (31-35); MEAN CORPUSCULAR VOLUME 83.8 fL (81-99); MONOCYTES # (AUTO) 0.1 (0.2-0.8); MONOCYTES % 0.8 % (4.4-11.3); NEUTROPHILS # (AUTO) 11.8 (2.1-6.9); NEUTROPHILS % 96.8 % (38.7-80.0); PLATELET COUNT 172 x10e3/uL (140-360); RED BLOOD COUNT 4.56 x10e6/uL (3.6-5.1)
[2020-02-27 06:31] LABS: ALANINE AMINOTRANSFERASE 39 IU/L (0-55); ALBUMIN 1.9 g/dL (3.5-5.0); ALBUMIN/GLOBULIN RATIO 0.4 (0.8-2.0); ALKALINE PHOSPHATASE 115 IU/L (40-150); ANION GAP 18.9 mmol/L (8-16); BLOOD UREA NITROGEN 32 mg/dL (7-26); BUN/CREATININE RATIO 37 (6-25); CALCIUM 8.3 mg/dL (8.4-10.2); CARBON DIOXIDE 22 mmol/L (22-29); CHLORIDE 97 mmol/L (98-107); CREATININE, SERUM 0.86 mg/dL (0.57-1.11); EST GLOMERULAR FILTRATION RATE > 60 ML/MIN (60-); POTASSIUM 4.9 mmol/L (3.5-5.1); SODIUM 133 mmol/L (136-145)
--- NOTE | 2020-02-27 06:31 | Diagnostic Imaging Report ---
EXAMINATION: CHEST SINGLE (PORTABLE) INDICATION: ^resp failure ^[id number] ^0512 COMPARISON: FINDINGS: Worsening subcutaneous emphysema and development of new small right pneumothorax on the right 2.3 cm from the apex. New pneumomediastinum. Diffuse interstitial and patchy opacities throughout both lungs with mild worsening at the lung bases. No pleural effusion. Tip of a left PICC projects over the distal SVC. IMPRESSION: 1. New small right apical pneumothorax. 2. New pneumomediastinum. 3. Diffuse chest wall and neck subcutaneous emphysema. 4. Diffuse multifocal pneumonia/ARDS mildly worsening at the lung bases. Results were discussed with nurse Hess on 02/27/2020 at 6:25 AM. Signed by: Franklyn Wynn MD on 02/27/2020 6:28 AM
[2020-02-27 06:34] LABS: GLUCOSE 443 mg/dL (74-118)
[2020-02-27] MEDS: ALBUTEROL SULFATE HFA 8GM INHALATION AEROSOL INH SCH ×3 (07:00→19:00)
[2020-02-27 07:05] LABS: FERRITIN 1895.61 ng/mL (4.63-204.00)
--- NOTE | 2020-02-27 07:19 | NUR ---
Notified Dr. Oliver of morning chest XRAY results. New order to repeat XRAY in 6 hrs. Order placed and day RN aware of 0600 report and repeat order for 1200.
[2020-02-27] MEDS: METOPROLOL SUCCINATE 50 MG TAB XL PO SCH ×2 (07:21→17:00)
[2020-02-27] MEDS: INSULIN LISPRO 100 UNIT/1 ML 3ML VIAL SQ SCH ×7 (08:00→21:00)
--- NOTE | 2020-02-27 08:20 | NUR ---
Dr Oliver to bedside.
[2020-02-27] MEDS ORDERED: LIDOCAINE HCL 2% LOCAL 20 ML VIAL ONE ×2 (08:43→08:44)
[2020-02-27] MEDS: ASCORBIC ACID 500 MG TAB PO SCH ×2 (09:00→17:36)
[2020-02-27] MEDS: GUAIFENESIN 600 MG TAB PO SCH (09:00)
[2020-02-27] MEDS: VENLAFAXINE HCL 75 MG CAPCR PO SCH (09:00)
[2020-02-27] MEDS: MEGACE 400MG/ 10ML CUP PO SCH (09:00)
[2020-02-27] MEDS: ZINC SULFATE 50 MG CAP PO SCH (09:00)
[2020-02-27] MEDS: MEMANTINE 10 MG TAB PO SCH (09:00)
--- NOTE | 2020-02-27 09:11 | NUR ---
INFECTIOUS DISEASE PROGRESS NOTE DR. TATYANA COTTON HISTORY OF PRESENT ILLNESS: Pneumonia in this patient who is a 74-year-old who has history of obesity, history of hypertension, and diabetes. She has been sick for a couple of weeks. Her family did have COVID. The patient comes in because she is short of breath and for the last 2 weeks she has been having some sore throat and cough and now she is having shortness of breath. The patient was in the emergency room. She is to being evaluated and going to be admitted. I am asked to see her. Her chest x-ray showed diffuse interstitial alveolar airspace opacities suggestive of edema and/or pneumonia. PAST MEDICAL HISTORY: Diabetes mellitus and hypertension. REVIEW OF SYSTEMS: +Fatigue +debility Beside what is noted above, denies any. PHYSICAL EXAMINATION: GENERAL: She is currently alert, oriented VITAL SIGNS: Stable, currently afebrile. HEENT: She is not icteric. normocephalic NECK: Supple. no JVD CHEST: Crackles bilateral. symmetric expansion, on oxygen HEART: S1, S2. no s3, s4 ABDOMEN: Soft. Bowel sounds present. EXTREMITIES: No edema. moves all SKIN: No rash. no edema IMPRESSION: Atypical pneumonia COVID-19 community-acquired pneumonia T2DM PLAN s/p RMSV, proning when able Diflucan added today per pulmonary, will continue x5 days continue with tight glucose control continue with supportive care continues on high flow n/c guarded prognosis Fara Harrell MSN, CORRECTIONAL CASE MANAGER, AGACNP-BC examined by Dr. Tatyana Cotton
[2020-02-27] MEDS: PROPOFOL IV EMULSION 10MG/ML 100 ML IV PRN ×3 (09:15→19:45)
--- NOTE | 2020-02-27 10:16 | Diagnostic Imaging Report ---
EXAMINATION: CHEST SINGLE (PORTABLE) INDICATION: ^s/p intubation COMPARISON: Same day chest x-ray. FINDINGS: TUBES and LINES: Interval placement of endotracheal tube which terminates approximately 3 cm above the guille. Right chest tube. There is subdiaphragmatic enteric tube which courses beyond the [id number]. Left PICC is unchanged. LUNGS: No interval change in diffuse interstitial and airspace opacities throughout both lungs. PLEURA: Trace right pneumothorax, improved from most recent prior examination. New trace left apical pneumothorax. Stable pneumomediastinum. HEART AND MEDIASTINUM: The cardiomediastinal silhouette is unchanged. There are atherosclerotic calcifications within the aorta. BONES AND SOFT TISSUES: No acute osseous lesion. Stable subcutaneous emphysema extending from the left axilla to the neck soft tissues. UPPER ABDOMEN: No free air under the diaphragm. IMPRESSION: 1. Interval endotracheal tube which terminates approximately 3 cm above the guille. 2. Trace right apical pneumothorax, improved from most recent prior exam. 3. New trace left pneumothorax. 4. Stable pneumomediastinum. 5. No interval change in diffuse interstitial and airspace opacity most compatible with multifocal pneumonia/ARDS. Signed by: Alexander Reed MD on 02/27/2020 10:13 AM
--- NOTE | 2020-02-27 10:18 | Diagnostic Imaging Report ---
EXAM: Abdomen Radiograph 1 View(s) INDICATION: ^OGT PLACEMENT COMPARISON: None FINDINGS: Enteric tube which terminates in the gastric fundus. Nonobstructive bowel gas pattern. There is contrast material in the right side of bowel. Status post cholecystectomy. Please see concomitantly obtained chest radiograph for details. IMPRESSION: 1. Enteric tube terminates in the gastric fundus. 2. Nonobstructive bowel gas pattern. Signed by: Alexander Reed MD on 02/27/2020 10:15 AM
[2020-02-27] MEDS: BACITRACIN ZINC 15 GM OINT TOP SCH (10:30)
[2020-02-27] MEDS: ENOXAPARIN INJ 80 MG/0.8 ML SYR SC SCH (10:30)
--- NOTE | 2020-02-27 11:16 | NUR ---
PULMONARY / CCM PROCEDURES NOTES - BRIEF [id number] Emergency procedures Right 12 Fr surgical chest tube placed for pneumothorax. Suboptimal improvement in dyspnea. Endotracheal intubation, ETT secured at 25 cm at the lip. Slightly anterior airway, required direct scope with custom bend on stylet anesthesia: Lidocaine 2% 6 cc succinylcholine 100 mg x 1, etomidate 15 mg x 1 complications: none EBL: minimal See dictation
--- NOTE | 2020-02-27 11:31 | Progress Note ---
DATE: 02/27/2020 Pulmonary Medicine Progress Note. SUBJECTIVE: Mrs. Paulson was seen and examined at bedside. She continued to have increasing and recurrent escalations throughout the night. She was more and more short of breath. Chest x-ray proved very small pneumothorax. We gave this a chance to drain to see if that assisted her breathing. However, the patient was exhausted and probably anxious. She was on fentanyl, which neither control all her symptoms. The patient was eventually intubated. Initial difficulty getting her oxygen saturation appropriate given her pneumothorax state, but eventually she was stabilized with some initial paralytics and sedation. REVIEW OF SYSTEMS: Cannot get reliably. She is intubated. LABORATORY DATA: 32 BUN, 0.9 creatinine, 22 bicarbonate, 4.9 potassium. 12 white count, 30 hematocrit, 172 platelets. IMPRESSION AND PLAN: 1. Acute hypoxemic respiratory failure, now intubated. 2. COVID-19 pneumonitis. 3. Pneumothorax right with pneumomediastinum, possible left-sided pneumothorax. 4. Encephalopathy, toxic metabolic with superimposed delirium and agitation. 5. Diabetes. 6. Hypertension. 7. Continue newly-intubated state. Ventilator support. Lung protective ventilation settings. So far, restriction or pressure control ventilation. The patient with chest tube placed today. We will continue to follow that for air output. Continue DVT prophylaxis as indicated. Continue comfort managements. I updated the patient's daughter today. Start enteral feedings and discontinue TPN TANYA. Greater than 30 minutes in care and coordination time today, not including procedure time. MD JEN Clemente/AL /[id number]
--- NOTE | 2020-02-27 12:21 | Operative Report ---
DATE OF PROCEDURE: 02/27/2020 SURGEON: Manpreet Oliver MD PROCEDURES: 1. Chest tube placement with surgical incision. 2. Oral endotracheal intubation. The patient admitted with chest x-ray pneumothorax and acute respiratory failure. Due to critical state, decisions were made for procedures at this time. CONSENT: Emergent. ANESTHESIA: Lidocaine 2%, 6 mL to the right chest locally injected. With intubation 100 mg succinylcholine, 15 mg etomidate. INDICATIONS: Respiratory failure, pneumothorax, COVID pneumonia. OPERATIVE FINDINGS: Sterile prep and drape. I explained to the patient and she granted her assent to procedures. The patient with local lidocaine to anterior right chest at about the 3rd intercostal space. Incision made for closer tunneling. Thereafter, 12-Serbian chest tube over trocar was inserted into the right pleural space. Air was released after the chest tube was sutured in place. Attention given to 2nd procedure, which is endotracheal intubation. Monitoring occurred the pneumothorax assisted the patient's breathing. However, patient was getting tired and her saturations were slowly worsening, so decision was made to intubate orally. Via a video laryngoscope, 3-blade and then 4-blade, the endotracheal tube had difficulty approaching vocal cord with stylet. A conventional stylet was used with attempt to bend it forward for a slightly anterior airway, which also showed some difficulty. Thereafter, direct laryngoscope using a 4 MAC blade was performed and on this 4th try to intubate it was successful. As stated, this was feasible with direct laryngoscope and a conventional stylet bent forward. Capnogram was used to confirm placement as well as subsequent chest x-ray. COMPLICATIONS: None. ESTIMATED BLOOD LOSS: Negligible. Manpreet Oliver MD GMN/MODL /[id number]
[2020-02-27] MEDS ORDERED: SODIUM CHLORIDE 0.9% 1000ML 1,000 ML ONE (14:09)
[2020-02-27] MEDS: VECURONIUM BROMIDE FOR INJ 20 MG VIAL IV PRN ×2 (14:40→21:15)
[2020-02-27] MEDS ORDERED: SUCCINYLCHOLINE CHLORIDE 20 MG/ML 10ML VIAL ONE (14:56)
[2020-02-27] MEDS ORDERED: WATER STERILE 10 ML VIAL ONE (14:56)
[2020-02-27] MEDS ORDERED: VECURONIUM BROMIDE FOR INJ 20 MG VIAL ONE (14:56)
[2020-02-27] MEDS ORDERED: ETOMIDATE 2 MG/ML 10 ML INJ IV ONE (14:56)
[2020-02-27] MEDS ORDERED: INSULIN REGULAR, HUMAN 3ML VL 100 UNIT in SODIUM CHLORIDE 0.9% 99 ML SQ SCH ×2 (15:00)
[2020-02-27] MEDS ORDERED: SODIUM CHLORIDE 0.9% 1000ML 300 ML IV ONE (15:00)
[2020-02-27] MEDS ORDERED: METHYLPREDNISOLONE SOD SUCC 40 MG/ML VIAL 1ML IV ONE (15:00)
[2020-02-27] MEDS ORDERED: INSULIN REGULAR, HUMAN 3ML VL 300 UNIT in SODIUM CHLORIDE 0.45% 100 ML 300 ML IV SCH ×2 (15:00)
[2020-02-27] MEDS ORDERED: DEXTROSE 50% SYRINGE 50 ML IV PRN (15:00)
--- NOTE | 2020-02-27 16:35 | Diagnostic Imaging Report ---
EXAMINATION: CHEST SINGLE (PORTABLE) INDICATION: ^follow up pneumothorax ^[id number] ^1525 ^Y COMPARISON: Same day radiographs. FINDINGS/IMPRESSION: Endotracheal tube terminates approximately 2 cm above the guille. Stable lines and tubes. Trace right apical pneumothorax is almost completely resolved. No interval change in trace left apical pneumothorax, pneumomediastinum and subcutaneous emphysema. No interval change in radiographic appearance of the lungs. Signed by: Alexander Reed MD on 02/27/2020 4:31 PM
--- NOTE | 2020-02-27 16:44 | NUR ---
no tx pt intubated now Addendum: 02/27/20 at 1645 by Franklyn Lopez ADVERTISING STATISTICAL CLERK Amended: Links added.
[2020-02-27 17:16] LABS: ABG HCO3 22 mmol/L (22-26); ABG PCO2 38 mmHg (35-45); ABG PH 7.37 (7.35-7.45); ABG PO2 52 mmHg (80-105); ABG TCO2 23
--- NOTE | 2020-02-27 19:00 | NUR ---
Report received. Assumed care. Assessment done. See interventions. Orally intubated with vent settings: 100%, PEEP 10, Rate 26 and PC 26. OGT with Jevity 1.2 @ 20ml/hr.
--- NOTE | 2020-02-27 20:18 | Progress Note ---
DATE: 02/27/2020 Medicine Progress Note SUBJECTIVE: The patient has significant respiratory distress and had to be intubated in the ICU. She was intubated by Pulmonary Critical Care today. She is on FiO2 of 100%. Apparently overnight she was very short of breath with minimal movement. PHYSICAL EXAMINATION: VITAL SIGNS: Temperature 98, pulse 76, respirations 26, blood pressure was 99/59, pulse ox 100% on FiO2 of 100%. General: Intubated and sedated. PULMONARY: Intubated and sedated. CARDIOVASCULAR: Positive S1, S2. No murmurs, rubs, or gallops appreciated. ABDOMEN: Soft, nondistended, and nontender to palpation. Bowel sounds present. MUSCULOSKELETAL: Unable to assess, intubated and sedated. NEUROLOGIC: Intubated and sedated. LABORATORY DATA: White count 12, hemoglobin 12.5, hematocrit 38, platelets 172,000. Chemistry; sodium 133, potassium 4.9, chloride 97, bicarb 22, anion gap of 18, BUN 32, creatinine is 0.86, glucose 264. Microbiology all cultures were negative. IMAGING STUDIES: Chest x-ray this morning showed ET tube was 3 cm above the guille. Trace right apical pneumothorax noted. Also there is trace left pneumothorax noted mediastinum. Abdominal x-ray, ET tube in the gastric fundus. Chest x-ray repeat shows a trace right apical pneumothorax and almost could be resolved after chest tube insertion. IMPRESSION: 1. Ramirez virus 19 pneumonia with worsening respiratory failure, now status post intubated and sedated. 2. Spontaneous pneumothorax, status post chest tube placement. 3. Hypertension. 4. Baseline dementia. 5. Generalized weakness and fatigue. 6. Moderate protein calorie malnutrition. PLAN: At this time, the patient decompensated, now intubated and sedated by Pulmonary Critical Care. Continue on vent settings. She completed all her steroids. ID and Pulmonary Critical Care following. TPN discontinued, she is started on OG tube feeds. Prognosis now seems to be very guarded. Plan of care was discussed with the critical care attending as well as nursing staff. Family was notified of Ms. Paulson's decompensation and was intubated. Daughter aware of her mom's overall current status very critical at this time. MD MARK Ty/AL /[id number]
--- NOTE | 2020-02-27 20:30 | NUR ---
BP decreaseed. Decreased propofol fro 35mcg to 30mcg.
[2020-02-27] MEDS: ATORVASTATIN 40 MG TAB PO SCH (21:00)
--- NOTE | 2020-02-27 21:15 | NUR ---
Vecuronium given for agitation.
[2020-02-27] MEDS: INSULIN GLARGINE 100 UNITS/ML VIAL SQ SCH (21:43)
[2020-02-28] VITALS (17 sets, daily range): BP systolic 67–174; BP diastolic 35–53
--- NOTE | 2020-02-28 02:10 | NUR ---
Call to Dr. Oliver (covering for Dr. Weber). Advised of low BP. Orders given for Levophed & 300cc bolus (balance of bag hanging).
[2020-02-28] MEDS ORDERED: NOREPINEPHRINE INJ 4MG/4ML 8 MG in DEXTROSE 5% 250ML 250 ML IV PRN (02:15)
[2020-02-28] MEDS ORDERED: NOREPINEPHRINE 8 MG/D5W 250 ML 250 ML ONE (02:20)
--- NOTE | 2020-02-28 02:58 | NUR ---
Very agitated. Attempting to pull at tubes/lines. Vercuronium IV given.
[2020-02-28] MEDS: VECURONIUM BROMIDE FOR INJ 20 MG VIAL IV PRN ×3 (02:59→10:25)
--- NOTE | 2020-02-28 03:18 | NUR ---
Decreased O2 to 85%.
[2020-02-28 06:08] LABS: ALBUMIN/GLOBULIN RATIO 0.4 (0.8-2.0); ANION GAP 14.2 mmol/L (8-16); CALCIUM 8.3 mg/dL (8.4-10.2); CREATININE, SERUM 0.99 mg/dL (0.57-1.11); MAGNESIUM 2.5 MG/DL (1.3-2.1); PHOSPHORUS 5.2 MG/DL (2.3-4.7); POTASSIUM 4.2 mmol/L (3.5-5.1)
[2020-02-28 06:22] LABS: BASOPHILS # (AUTO) 0.1 (0.0-0.1); BASOPHILS % 0.2 % (0.0-1.0); HEMATOCRIT 37.6 % (34.2-44.1); LYMPHOCYTES # (AUTO) 0.6 (1.0-3.2); LYMPHOCYTES % 2.3 % (18.0-39.1); MEAN CORPUSCULAR HEMOGLOBIN 27.3 pg (28-32); MEAN CORPUSCULAR HGB CONC 31.9 g/dL (31-35); MEAN CORPUSCULAR VOLUME 85.6 fL (81-99); MONOCYTES # (AUTO) 0.8 (0.2-0.8); MONOCYTES % 3.1 % (4.4-11.3); NEUTROPHILS # (AUTO) 25.4 (2.1-6.9); NEUTROPHILS % 93.2 % (38.7-80.0); PLATELET COUNT 190 x10e3/uL (140-360); RED BLOOD COUNT 4.39 x10e6/uL (3.6-5.1); RED CELL DISTRIBUTION WIDTH 14.5 % (11.7-14.4)
[2020-02-28] MEDS: ALBUTEROL SULFATE HFA 8GM INHALATION AEROSOL INH SCH (07:00)
[2020-02-28] MEDS: INSULIN LISPRO 100 UNIT/1 ML 3ML VIAL SQ SCH ×3 (07:30→12:40)
[2020-02-28] MEDS: METOPROLOL SUCCINATE 50 MG TAB XL PO SCH (07:34)
[2020-02-28] MEDS ORDERED: SODIUM CHLORIDE 0.9% 1000ML 1,000 ML ONE (07:55)
--- NOTE | 2020-02-28 07:58 | Diagnostic Imaging Report ---
EXAMINATION: CHEST SINGLE (PORTABLE) INDICATION: ^pneumonia ^[id number] ^0509 COMPARISON: Multiple prior chest x-rays including most recent on 02/27/2020. FINDINGS: TUBES and LINES: Endotracheal tube terminates approximately 4 cm above the guille. Right chest tube. There is subdiaphragmatic enteric tube which courses beyond the [id number]. Left PICC is unchanged. LUNGS: No significant interval change in diffuse interstitial and airspace opacities throughout both lungs. PLEURA: There is trace bilateral pneumothorax. Pneumomediastinum is unchanged. HEART AND MEDIASTINUM: The cardiomediastinal silhouette is unchanged. There are atherosclerotic calcifications within the aorta. BONES AND SOFT TISSUES: Degenerative changes in the spine and shoulders. There has been interval worsening of subcutaneous emphysema predominantly in the left axilla extending to the chest wall and neck. UPPER ABDOMEN: No free air under the diaphragm. IMPRESSION: 1. Interval worsening of subcutaneous emphysema predominantly in the left axilla extending to the chest wall and neck. 2. Stable lines and tubes. 3. Trace biapical pneumothorax. 4. Stable pneumomediastinum. 5. No significant interval change in diffuse interstitial and airspace opacity most compatible with multifocal pneumonia/ARDS. Signed by: Alexander Reed MD on 02/28/2020 7:55 AM
[2020-02-28 08:06] LABS: ABG HCO3 24 mmol/L (22-26); ABG PCO2 46 mmHg (35-45); ABG PH 7.33 (7.35-7.45); ABG PO2 71 mmHg (80-105); ABG TCO2 26
[2020-02-28] MEDS: BACITRACIN ZINC 15 GM OINT TOP SCH (08:30)
[2020-02-28] MEDS: ZINC SULFATE 50 MG CAP PO SCH (08:30)
[2020-02-28] MEDS: ASCORBIC ACID 500 MG TAB PO SCH (08:30)
[2020-02-28 10:09] LABS: ABG HCO3 26 mmol/L (22-26); ABG PCO2 57 mmHg (35-45); ABG PH 7.27 (7.35-7.45); ABG PO2 57 mmHg (80-105); ABG TCO2 28
[2020-02-28] MEDS: PROPOFOL IV EMULSION 10MG/ML 100 ML IV PRN (10:25)
--- NOTE | 2020-02-28 11:37 | Diagnostic Imaging Report ---
EXAMINATION: CHEST SINGLE (PORTABLE) INDICATION: ^r/o worsening of pneumothorax ^[id number] ^0950 COMPARISON: Same day radiograph. FINDINGS/impression: 1. Stable lines and tubes. 2. No interval changes in radiographic appearance of the lungs characterized by diffuse interstitial and airspace opacities. 3. No interval change in extensive subcutaneous emphysema. 4. Trace biapical pneumothorax is unchanged. Signed by: Alexander Reed MD on 02/28/2020 11:34 AM
--- NOTE | 2020-02-28 12:20 | NUR ---
PULMONARY/CCM BRIEF PROCEDURE NOTE Arterial line placed into right radial artery US guidance 3 attempts No complications EBL 1 cc
--- NOTE | 2020-02-28 15:41 | Progress Note ---
DATE: 02/28/2020 Pulmonary Medicine Progress Note SUBJECTIVE: Ms. Paulson seen and examined at bedside. Tube feeds 20 mL per hour, water at 50 mL every 6 hours. She remains on ventilator pressure control AC. Chest x-ray, bilateral pneumothorax with chest tube in place. Left side equivocal pneumothorax present. There is more subcutaneous free air. Propofol . REVIEW OF SYSTEMS: Cannot get as she is intubated. OBJECTIVE: No kai swelling of legs. LABORATORY DATA: Potassium 4.2 and 0.99 creatinine. White count 27 and 190 platelets. A 7.27/57/55 on the blood gas venous. IMPRESSION: 1. Acute respiratory failure, intubated. 2. Coronavirus 19 pneumonia. 3. Right pneumothorax, status post chest tube. 4. pneumothorax. 5. Encephalopathy, toxic, metabolic. 6. Diabetes. 7. Hypertension. PLAN: Continue intubated state. Ventilator support, lung protective settings. We will follow the air in the chest closely. The patient may not need another chest tubes if air is increasing on either lateral side. If it is just new mediastinum, we will follow clinically. We will check biomarkers of inflammation. May it had been related to stress around the time she was intubated yesterday. Continue low-dose pressors and weaned it off if possible. Continue tube feeds for now and consider increasing dosage of tube feeds next few days. Chest tube should be on lower intermittent wall suction. Greater than 30 minutes in direct care and coordination today. Multiple efforts to coordinate care including procedure time. MD JEN Clemente/AL /[id number]
--- NOTE | 2020-02-28 15:56 | Progress Note ---
DATE: SUBJECTIVE: Ms. Paulson is deteriorating, condition is getting worse. The patient who is intubated. Discussed with Dr. Oliver. PHYSICAL EXAMINATION: GENERAL: She is intubated, sedated. HEENT: She is not icteric. NECK: Supple . CHEST: Crackles bilateral. HEART: S1, S2. ABDOMEN: Soft. EXTREMITIES: No edema. IMPRESSION: Respiratory failure, COVID-19 progressing. Prognosis is extremely poor. Discussed with the family. The family would like to stop life support, this was conveyed to the nursing team, the patient's family would like to visit the patient before they stop the life support. We will follow. MD MILAGRO Sunshine/AL /[id number]
[2020-02-28] MEDS ORDERED: LORAZEPAM INJ 2 MG/ML VIAL IV ONE (16:00)
[2020-02-28] MEDS ORDERED: FENTANYL CITRATE/PF 100MCG/2 ML INJ IV ONE (16:00)
--- NOTE | 2020-02-28 16:13 | NUR ---
FAMILY SPOKE TO MD ALL QUESTIONS ANSWERED PATIENT EXTUBATED PER FAMILY REQUEST, COMFORT CARE INITIATED. EXTUBATED AT 1604. CESSATION OF VITAL SIGS AT 1613 MD IN ROOM.
--- NOTE | 2020-02-28 17:23 | NUR ---
RESTRAINT LOG NOTED
--- NOTE | 2020-02-28 18:11 | Operative Report ---
DATE OF PROCEDURE: 02/28/2020 SURGEON: Manpreet Oliver MD PROCEDURE: Arterial line placement, right radial artery. Ultrasound used for guidance. INDICATION: Hemodynamic monitoring. CONSENT: Informed consent from the daughter. ANESTHESIA: Lidocaine 1% 2 mL locally. OPERATIVE FINDINGS: The patient placed in position with the right wrist exposed. Sterile prep and drape. Local lidocaine given in the area. After ultrasound placement identified the artery, needle was inserted and guided toward the right radial artery after Mitch's test performed. Thereafter, catheter was inserted over guidewire and the arterial line was sutured in place. Confirmation with good waveforms was also noted on the monitor. COMPLICATIONS: None. ESTIMATED BLOOD LOSS: Less than 1 mL. Manpreet Oliver MD GMN/MODL /[id number]
--- NOTE | 2020-02-28 18:41 | Progress Note ---
DATE: 02/28/2020 Quick Medicine Progress Note I was called to come and pronounce the patient's . The patient pronounced at 4:13 p.m. The patient had no pulse, no heart sounds and is not responsive to verbal stimuli. Family was at bedside, crying. TIME OF : 4:13 p.m. Nurse was present with Lorene. Condolences given to the family. MD MARK Ty/MIGUELL /[id number]
--- NOTE | 2020-02-28 18:41 | Progress Note ---
DATE: 02/28/2020 SUBJECTIVE: The patient was not doing very well. She is on 100% FiO2 on a mechanical ventilator. Several conversations have been held with the family. Today, the family is available at bedside, Marta and discussed about her overall state. They want their mother to be comfortable with comfort measures only. They know that their mom is sick she wanted, they wanted to keep her comfortable as per her wishes. OBJECTIVE: VITAL SIGNS: Temperature is 98, pulse 92, respiratory rate 26, blood pressure 130/53, and pulse ox 99% on 100% mechanical ventilation. GENERAL: Intubated and sedated. PULMONARY: Intubated and sedated. CARDIOVASCULAR: Positive S1 and S2. No murmurs, rubs, or gallops. ABDOMEN: Soft and nontender to palpation. Bowel sounds present. MUSCULOSKELETAL: Intubated and sedated. NEUROLOGICAL: Intubated and sedated. LABORATORY DATA: White count 17.2, hematocrit 37, platelets of 190. Chemistry; sodium 137, potassium 4.2, chloride 104, bicarb 25, anion gap 14, BUN 32, creatinine 0.99, glucose 188. Coronavirus detected. Influenza is negative. Cultures were found to be negative. IMAGING STUDIES: Chest x-ray today showed worsening diffuse interstitial airspace opacities. IMPRESSION: 1. Coronavirus disease-19 pneumonia with respiratory failure, intubated. 2. Spontaneous pneumothorax, status post chest tube placement. 3. Hypertension. 4. Baseline dementia. 5. Generalized weakness and fatigue. 6. Moderate protein calorie malnutrition. PLAN: At this time, we had long conversation with the patient's daughters, Marta comfort measures only. The patient's spouse agrees to comfort measures only as well. At this time, orders have been placed for compassionate extubation as her wishes. I have ordered some fentanyl and some ativan to keep her comfortable, at least here in the hospital, comfortable. This is their wishes and once again Marta and Samanta were at bedside and they confirmed comfort measures which orderers now have been placed for compassionate extubation. Ms. Paulson's , Jonatan was present throughout our conversation and compassionate extubation will be assessed as per family's wishes. MD MARK Ty/AL /[id number]
--- NOTE | 2020-02-28 21:21 | NUR ---
home client account representative here to transfer pt. Daughter [place] called and notified.
== END 2020-02-28 21:15 | disposition expired | DRG 208 ==
LOC: ER 14:56 → ERHOLD 16:10 → IMCU 19:17 → ICU 02-20 09:21
PROVIDERS: ADMIT Internal Medicine; ATTEND Internal Medicine
PROC: 8E0ZXY6 Isolation (ICD-10-PCS; 2020-02-13)
PROC: XW033E5 Introduction of Remdesivir Anti-infective into Peripheral Vein, Percutaneous Approach, New Technology Group 5 (ICD-10-PCS; 2020-02-15)
PROC: 0BH18EZ Insertion of Endotracheal Airway into Trachea, Via Natural or Artificial Opening Endoscopic (ICD-10-PCS; principal; 2020-02-27)
PROC: 5A1945Z Respiratory Ventilation, 24-96 Consecutive Hours (ICD-10-PCS; 2020-02-27)
PROC: 0W9900Z Drainage of Right Pleural Cavity with Drainage Device, Open Approach (ICD-10-PCS; 2020-02-27)
PROC: 03HB33Z Insertion of Infusion Device into Right Radial Artery, Percutaneous Approach (ICD-10-PCS; 2020-02-28)
DX: U07.1 COVID-19 (principal); J12.9 Viral pneumonia, unspecified; J96.01 Acute respiratory failure with hypoxia; G93.41 Metabolic encephalopathy; J15.9 Unspecified bacterial pneumonia; E87.1 Hypo-osmolality and hyponatremia; J93.83 Other pneumothorax; E44.0 Moderate protein-calorie malnutrition; E11.65 Type 2 diabetes mellitus with hyperglycemia; T38.0X5A Adverse effect of glucocorticoids and synthetic analogues, initial encounter; I12.9 Hypertensive chronic kidney disease with stage 1 through stage 4 chronic kidney disease, or unspecified chronic kidney disease; E11.22 Type 2 diabetes mellitus with diabetic chronic kidney disease; N18.30 Chronic kidney disease, stage 3 unspecified; Z79.899 Other long term (current) drug therapy; R63.0 Anorexia; Z68.20 Body mass index [BMI] 20.0-20.9, adult; R09.02 Hypoxemia; F03.90 Unspecified dementia, unspecified severity, without behavioral disturbance, psychotic disturbance, mood disturbance, and anxiety
CPT/HCPCS: 31500; 36415; 36569; 36600; 71045; 71260; 74018; 74230; 80048; 80053; 81001; 82550; 82553; 82728; 82805; 82948; 83036; 83615; 83735; 83880; 84100; 84439; 84443; 84484; 85025; 85610; 85730; 86140; 87040; 87086; 87400; 93005; 93306; 94002; 94003; 94664; 96361; 97139; 99251; 99285; J0330; J0456; J0696; J1100; J1450; J1650; J1815; J1817; J1940; J2001; J2060; J2920; J2930; J3010; J7030; J7050; Q9967; U0002